=== PATIENT | female | born 1960 | race Caucasian/White ===

== ENCOUNTER 2022-05-23 05:41 | Emergency (ER) | payer BC, SELFPAY ==
[2022-05-23 05:49] VITALS: BP 188/91; PULSE 83; RESP 22; TEMP 36.2; O2SAT 96
--- NOTE | 2022-05-23 06:35 | CRLHL7_ITS ---
For Patients: As a result of the Century Cures Act, medical imaging exams and procedure reports are released immediately into your electronic medical record. You may view this report before your referring provider. If you have questions, please contact your health care provider. Indication: Shortness of breath. Technique: Chest 2 views. Comparison: June 25, 2021. Findings/Impression: Cardiovascular and mediastinum: Heart size and vasculature are normal in caliber and appearance. Lungs and pleural spaces: Ill-defined opacity in the right middle lobe could represent pneumonia. Remainder of the lungs and pleural spaces are clear. No pneumothorax. Bones and soft tissues: No significant findings. Dictated by Esdras Rowe MD @ 05/23/2022 7:48:08 AM (Electronically Signed)
--- NOTE | 2022-05-23 06:38 | ED_ITS ---
HPI - General Adult General Date Seen: 05/23/22 Chief complaint: Shortness of Breath/Dyspnea Stated complaint: Short of breath Time Seen by Provider: 05/23/22 06:23 Source: patient Mode of arrival: ambulatory Limitations: no limitations History of Present Illness HPI narrative: Patient is a 62-year-old female with history of coronary stent x2, congestive heart failure, type 2 diabetes, hypertension who presents with shortness of breath that began yesterday. This was much worse with exertion. She did have some orthopnea. No fevers or chills. She also has a history of pneumonia. She denies edema or weight gain. She denies chest pains or sputum production. Related Data Home Medications Medication Instructions Recorded Confirmed atorvastatin 80 mg tablet 80 mg PO DAILY 05/23/22 05/23/22 ezetimibe 10 mg tablet mg 05/23/22 insulin glargine-yfgn 100 unit/mL unit subcut 05/23/22 (3 mL) subcutaneous pen (Semglee (insulin glargine-yfgn) Pen) lisinopril 40 mg tablet 40 mg PO DAILY 05/23/22 05/23/22 metformin 500 mg tablet 500 mg PO BID 05/23/22 05/23/22 metoprolol tartrate 100 mg tablet 100 mg PO BID 05/23/22 05/23/22 nitroglycerin 0.4 mg sublingual 0.4 mg sublingual PRN 05/23/22 tablet omeprazole 20 mg capsule,delayed 20 mg PO .every other day 05/23/22 05/23/22 release semaglutide 1 mg/dose (4 mg/3 mL) mg subcut 05/23/22 subcutaneous pen injector (Ozempic) tramadol 50 mg tablet 50 mg PO PRN 05/23/22 Allergies Allergy/AdvReac Type Severity Reaction Status Date / Time morphine AdvReac increased Verified 05/23/22 06:04 BP Review of Systems Status of ROS: Reports: 10 or more systems reviewed and unremarkable except as noted in History and below [facility] Medical History (Updated 05/23/22 @ 06:23 by Dion Ayala MD) Chest pain CHF (congestive heart failure) HTN (hypertension) Pneumonia Type 2 diabetes mellitus Ulnar fracture Surgical History (Updated 05/23/22 @ 06:11 by Rachel De Guzman RN) Stented coronary artery Social History Smoking Status: Former smoker Second hand tobacco smoke exposure: No How often do you have a drink containing alcohol: never AUDIT-C Alcohol total score: 0 Non-prescribed substance use: denies use Exam Narrative: Exam Narrative: Vitals noted. HEENT: Conjunctiva clear. Tympanic membranes are pearly white bilaterally. Posterior pharynx is clear without erythema or exudate. Neck is supple without adenopathy, thyromegaly, carotid bruit. Lungs: Clear to auscultation in all andrea. No wheezes, rales, rhonchi. Heart: Regular rate and rhythm without murmur. Abdomen: Soft and nontender. No guarding, rigidity, rebound. Bowel sounds are normal. No palpable masses. Extremities: No cyanosis or edema. Good distal pulses. Skin: No abnormalities noted of the exposed skin. Neurologic: Awake, alert, fully oriented. Neurologic exam is nonfocal. Const: Vital Signs, click to edit/add: Vital Signs - 24 hr 05/23/22 05:49 Temperature 97.1 F L Pulse Rate [Right Pulse Oximeter] 83 Respiratory Rate 22 Blood Pressure [Ri ght Upper Arm] 188/91 H Pulse Oximetry 96 Oxygen Delivery Me thod Room Air Course Course Hospital Course: Patient seen and examined. Labs and a chest x-ray are ordered. She does not appear short of breath. She is not hypoxic. Reevaluation(s) Reevaluation #1: Her D-dimer has come back elevated and a CT of her chest is ordered to rule out pulmonary embolism. Patient's care will be assumed by Dr. Lares. Vital Signs Vital signs: Initial Vital Signs Temperature 97.1 F L 05/23/22 05:49 Temperature Source Temporal Artery Scan 05/23/22 05:49 Pulse Rate 83 05/23/22 05:49 Respiratory Rate 22 05/23/22 05:49 Blood Pressure 188/91 H 05/23/22 05:49 Blood Pressure Mean 123 05/23/22 05:49 Blood Pressure Position Supine 05/23/22 05:49 Pulse Oximetry 96 05/23/22 05:49 Oxygen Delivery Method 05/23/22 05:49 Vital Signs Temperature 97.1 F L 05/23/22 05:49 Pulse Rate 83 05/23/22 05:49 Respiratory Rate 22 05/23/22 05:49 Blood Pressure 188/91 H 05/23/22 05:49 Pulse Oximetry 96 05/23/22 05:49 Oxygen Delivery Method 05/23/22 05:49 Temperature 97.1 F L 05/23/22 05:49 Pulse Rate 83 05/23/22 05:49 Respiratory Rate 22 05/23/22 05:49 Blood Pressure 188/91 H 05/23/22 05:49 Pulse Oximetry 96 05/23/22 05:49 Oxygen Delivery Method 05/23/22 05:49 Medical Decision Making Lab Data Labs: Lab Results 05/23/22 05/23/22 05/23/22 Range/Units 06:48 06:48 06:48 WBC 10.16 (4.50-11.00) K/uL RBC 4.87 (4.00-5.20) m/uL Hgb 12.7 (12.0-16.0) gm/dL Hct 39.9 (33.0-51.0) % MCV 82 (80-100) fL MCH 26 (26-34) pg MCHC 32 (32-36) gm/dL RDW Coeff of Comfort 14.8 (11.5-15.5) % Plt Count 164 (140-440) K/uL Neut % (Auto) 64.2 (42.0-72.0) % Lymph % (Auto) 22.1 (20-44) % [place] % (Auto) 8.4 (0.0-11.0) % Eos % (Auto) 4.4 (0.0-7.0) % Baso % (Auto) 0.3 (0.0-3.0) % Neut # (Auto) 6.52 (1.7-7.0) K/uL Lymph # (Auto) 2.25 (0.90-2.90) K/uL [place] # (Auto) 0.90 (0.00-0.90) K/UL Eos # (Auto) 0.45 (0.00-0.50) K/uL Baso # (Auto) 0.03 (0.00-0.30) K/uL Abs Immat Gran (auto) 0.06 (0.00-0.30) K/uL D-Dimer Quant (PE/DVT) 0.83 H (0.00-0.50) ug/ml Sodium 144 (135-149) mmol/L Potassium 3.8 (3.6-5.1) mmol/L Chloride 110 (96-114) mmol/L Carbon Dioxide 25 (20-32) mmol/L BUN 17 (7-30) mg/dL Creatinine 1.1 (0.5-1.5) mg/dL Estimated GFR 58 ml/min Glucose 96 (60-115) mg/dL Calcium 8.8 (8.4-10.6) mg/dL NT-Pro-B Natriuret Pep 598 H (0-125) PG/mL Discharge Plan Discharge Prescriptions: No Action atorvastatin 80 mg tablet 80 mg PO DAILY lisinopril 40 mg tablet 40 mg PO DAILY metoprolol tartrate 100 mg tablet 100 mg PO BID omeprazole 20 mg capsule,delayed release(DR/EC) 20 mg PO .every other day tramadol 50 mg tablet 50 mg PO PRN metformin 500 mg tablet 500 mg PO BID ezetimibe 10 mg tablet Ozempic 1 mg/dose (4 mg/3 mL) pen injector SUBCUT insulin glargine-yfgn [Semglee(insulin glarg-yfgn)Pen] 100 unit/mL (3 mL) insulin pen SUBCUT nitroglycerin 0.4 mg tablet, sublingual 0.4 mg sublingual PRN Follow Up/Referrals: Nicki Vela DO [Primary Care Provider] -
[2022-05-23 07:06] LABS: Basophils Absolute Auto 0.03 K/uL (0.00-0.30); Basophils Percent Auto 0.3 % (0.0-3.0); Eosinophils Absolute Auto 0.45 K/uL (0.00-0.50); Eosinophils Percent Auto 4.4 % (0.0-7.0); Hematocrit 39.9 % (33.0-51.0); Hemoglobin* 12.7 gm/dL (12.0-16.0); Immature Granulocytes Abs Auto 0.06 K/uL (0.00-0.30); Lymphocytes Absolute Auto 2.25 K/uL (0.90-2.90); Lymphocytes Percent Auto 22.1 % (20-44); Mean Corpuscular HGB Conc 32 gm/dL (32-36); Mean Corpuscular Hemoglobin 26 pg (26-34); Mean Corpuscular Volume 82 fL (80-100); Monocytes Percent Auto 8.4 % (0.0-11.0); Neutrophils Absolute Auto 6.52 K/uL (1.7-7.0); Neutrophils Percent Auto 64.2 % (42.0-72.0); Platelet Count* 164 K/uL (140-440); RDW Coefficient of Variation % 14.8 % (11.5-15.5); Red Blood Count 4.87 m/uL (4.00-5.20); White Blood Count* 10.16 K/uL (4.50-11.00)
[2022-05-23 07:09] LABS: Slide Review Reflex No
[2022-05-23 07:24] LABS: Chloride* 110 mmol/L (96-114); Potassium* 3.8 mmol/L (3.6-5.1); Sodium* 144 mmol/L (135-149)
[2022-05-23 07:27] LABS: Blood Urea Nitrogen* 17 mg/dL (7-30); Carbon Dioxide* 25 mmol/L (20-32); Creatinine* 1.1 mg/dL (0.5-1.5); D Dimer Quantitative* 0.83 ug/ml (0.00-0.50); Estimated Glomerular Filt Rate 58 ml/min
[2022-05-23 07:28] LABS: Calcium* 8.8 mg/dL (8.4-10.6); Glucose* 96 mg/dL (60-115)
--- NOTE | 2022-05-23 07:36 | CRLHL7_ITS ---
For Patients: As a result of the Century Cures Act, medical imaging exams and procedure reports are released immediately into your electronic medical record. You may view this report before your referring provider. If you have questions, please contact your health care provider. INDICATION: Shortness of breath. TECHNIQUE: CT chest PE was acquired with 95 cc Isovue 370 IV contrast. COMPARISON: June 25, 2021. FINDINGS: Heart and vasculature: Contrast opacification of the pulmonary arterial tree is adequate. No sign of pulmonary embolism. Heart size is normal. Thoracic aorta and pulmonary artery are normal in caliber. Lungs and pleura: There is partial consolidation and volume loss in the right middle lobe. No other infiltrates. Scattered small subcentimeter nodules and calcified granulomas are stable and almost certainly benign. No pleural effusions, pleural thickening, or pneumothorax. Lymph nodes/mediastinum: No acute lymphadenopathy. Few small calcified lymph nodes present. Chest wall: No masses. Upper abdomen: No acute or significant findings. Bones: Unremarkable for age. IMPRESSION: 1. No pulmonary embolism. 2. Partial consolidation volume loss of the right middle lobe could represent atelectasis and/or pneumonia. No obvious cause for atelectasis. 3. Stable scattered subcentimeter calcified and noncalcified nodules which are very likely benign. Please note that all CT scans at this facility use dose modulation, iterative reconstruction, and/or weight-based dosing when appropriate to reduce radiation dose to as low as reasonably achievable. Dictated by Esdras Rowe MD @ 05/23/2022 10:21:56 AM (Electronically Signed)
[2022-05-23 07:37] LABS: NT Pro B Type NatriureticPept* 598 PG/mL (0-125)
[2022-05-23 07:40] LABS: Troponin I* 0.01 ng/mL (0.01-0.04)
[2022-05-23 07:58] VITALS: BP 165/76; RESP 18; O2SAT 98
--- NOTE | 2022-05-23 08:34 | ED.NURSE ---
#20 SL placed L FA. pt [employer] swab for covid
[2022-05-23] MEDS: FUROSEMIDE 10 MG/ML inj 40 MG IVP (08:58)
[2022-05-23 09:30] LABS: SARS PCR* Negative SARS-CoV-2 (Negative)
--- NOTE | 2022-05-23 10:27 | ED.GENADULT ---
HPI - General Adult General Chief complaint: Shortness of Breath/Dyspnea Stated complaint: Short of breath Time Seen by Provider: 05/23/22 06:23 Source: patient Mode of arrival: ambulatory Limitations: no limitations Related Data Home Medications Medication Instructions Recorded Confirmed atorvastatin 80 mg tablet 80 mg PO DAILY 05/23/22 05/23/22 ezetimibe 10 mg tablet mg 05/23/22 insulin glargine-yfgn 100 unit/mL unit subcut 05/23/22 (3 mL) subcutaneous pen (Semglee (insulin glargine-yfgn) Pen) lisinopril 40 mg tablet 40 mg PO DAILY 05/23/22 05/23/22 metformin 500 mg tablet 500 mg PO BID 05/23/22 05/23/22 metoprolol tartrate 100 mg tablet 100 mg PO BID 05/23/22 05/23/22 nitroglycerin 0.4 mg sublingual 0.4 mg sublingual PRN 05/23/22 tablet omeprazole 20 mg capsule,delayed 20 mg PO .every other day 05/23/22 05/23/22 release semaglutide 1 mg/dose (4 mg/3 mL) mg subcut 05/23/22 subcutaneous pen injector (Ozempic) tramadol 50 mg tablet 50 mg PO PRN 05/23/22 Previous Rx's Medication Instructions Recorded azithromycin 250 mg tablet 500 mg PO DAILY #6 tabs 05/23/22 (Zithromax Z-Jordan) Allergies Allergy/AdvReac Type Severity Reaction Status Date / Time morphine AdvReac increased Verified 05/23/22 06:04 BP PFSH [facility] Medical History (Updated 05/23/22 @ 06:23 by Dion Ayala MD) Chest pain CHF (congestive heart failure) HTN (hypertension) Pneumonia Type 2 diabetes mellitus Ulnar fracture Surgical History (Updated 05/23/22 @ 06:11 by Rachel De Guzman RN) Stented coronary artery Social History Smoking Status: Former smoker Second hand tobacco smoke exposure: No How often do you have a drink containing alcohol: never AUDIT-C Alcohol total score: 0 Non-prescribed substance use: denies use Exam Const: Vital Signs, click to edit/add: Vital Signs - 24 hr 05/23/22 05:49 05/23/22 07:58 Temperature 97.1 F L Pulse Rate [Right Pulse Oximeter] 83 Respiratory Rate 22 18 Blood Pressure [Ri ght Upper Arm] 188/91 H 165/76 H Pulse Oximetry 96 98 Oxygen Delivery Me thod Room Air Course Course Hospital Course: Patient seen and examined. Labs and a chest x-ray are ordered. She does not appear short of breath. She is not hypoxic. Vital Signs Vital signs: Initial Vital Signs Temperature 97.1 F L 05/23/22 05:49 Temperature Source Temporal Artery Scan 05/23/22 05:49 Pulse Rate 83 05/23/22 05:49 Respiratory Rate 22 05/23/22 05:49 Blood Pressure 188/91 H 05/23/22 05:49 Blood Pressure Mean 123 05/23/22 05:49 Blood Pressure Position Supine 05/23/22 05:49 Pulse Oximetry 96 05/23/22 05:49 Oxygen Delivery Method 05/23/22 05:49 Vital Signs Temperature 97.1 F L 05/23/22 05:49 Pulse Rate 83 05/23/22 05:49 Respiratory Rate 22 05/23/22 05:49 Blood Pressure 188/91 H 05/23/22 05:49 Pulse Oximetry 96 05/23/22 05:49 Oxygen Delivery Method 05/23/22 05:49 Temperature 97.1 F L 05/23/22 05:49 Pulse Rate 83 05/23/22 05:49 Respiratory Rate 18 05/23/22 07:58 Blood Pressure 165/76 H 05/23/22 07:58 Pulse Oximetry 98 05/23/22 07:58 Oxygen Delivery Method 05/23/22 05:49 Medical Decision Making MDM Narrative Medical decision making narrative: The patient was taken over by From Dr. Ayala, the CT scan of the chest shows questionable pneumonia in the right lung. Apparently Shahida is had this in the last few months as well I would recommend she talk to Dr. Fields about this and perhaps get a lung specialist referral. Will put her on Zithromax now, light activity, rest, update with Dr. Sims in the next 2-3 days. Lab Data Labs: Lab Results 05/23/22 05/23/22 05/23/22 Range/Units 06:48 06:48 06:48 WBC 10.16 (4.50-11.00) K/uL RBC 4.87 (4.00-5.20) m/uL Hgb 12.7 (12.0-16.0) gm/dL Hct 39.9 (33.0-51.0) % MCV 82 (80-100) fL MCH 26 (26-34) pg MCHC 32 (32-36) gm/dL RDW Coeff of Comfort 14.8 (11.5-15.5) % Plt Count 164 (140-440) K/uL Neut % (Auto) 64.2 (42.0-72.0) % Lymph % (Auto) 22.1 (20-44) % [place] % (Auto) 8.4 (0.0-11.0) % Eos % (Auto) 4.4 (0.0-7.0) % Baso % (Auto) 0.3 (0.0-3.0) % Neut # (Auto) 6.52 (1.7-7.0) K/uL Lymph # (Auto) 2.25 (0.90-2.90) K/uL [place] # (Auto) 0.90 (0.00-0.90) K/UL Eos # (Auto) 0.45 (0.00-0.50) K/uL Baso # (Auto) 0.03 (0.00-0.30) K/uL Abs Immat Gran (auto) 0.06 (0.00-0.30) K/uL D-Dimer Quant (PE/DVT) 0.83 H (0.00-0.50) ug/ml Sodium 144 (135-149) mmol/L Potassium 3.8 (3.6-5.1) mmol/L Chloride 110 (96-114) mmol/L Carbon Dioxide 25 (20-32) mmol/L BUN 17 (7-30) mg/dL Creatinine 1.1 (0.5-1.5) mg/dL Estimated GFR 58 ml/min Glucose 96 (60-115) mg/dL Calcium 8.8 (8.4-10.6) mg/dL Troponin I 0.01 (0.01-0.04) ng/mL NT-Pro-B Natriuret Pep 598 H (0-125) PG/mL SARS-CoV-2 (PCR) (Negative) 05/23/22 Range/Units 08:08 WBC (4.50-11.00) K/uL RBC (4.00-5.20) m/uL Hgb (12.0-16.0) gm/dL Hct (33.0-51.0) % MCV (80-100) fL MCH (26-34) pg MCHC (32-36) gm/dL RDW Coeff of Comfort (11.5-15.5) % Plt Count (140-440) K/uL Neut % (Auto) (42.0-72.0) % Lymph % (Auto) (20-44) % [place] % (Auto) (0.0-11.0) % Eos % (Auto) (0.0-7.0) % Baso % (Auto) (0.0-3.0) % Neut # (Auto) (1.7-7.0) K/uL Lymph # (Auto) (0.90-2.90) K/uL [place] # (Auto) (0.00-0.90) K/UL Eos # (Auto) (0.00-0.50) K/uL Baso # (Auto) (0.00-0.30) K/uL Abs Immat Gran (auto) (0.00-0.30) K/uL D-Dimer Quant (PE/DVT) (0.00-0.50) ug/ml Sodium (135-149) mmol/L Potassium (3.6-5.1) mmol/L Chloride (96-114) mmol/L Carbon Dioxide (20-32) mmol/L BUN (7-30) mg/dL Creatinine (0.5-1.5) mg/dL Estimated GFR ml/min Glucose (60-115) mg/dL Calcium (8.4-10.6) mg/dL Troponin I (0.01-0.04) ng/mL NT-Pro-B Natriuret Pep (0-125) PG/mL SARS-CoV-2 (PCR) Negative SARS-CoV-2 (Negative) Discharge Plan Discharge Prescriptions: New azithromycin [Zithromax Z-Jordan] 250 mg tablet 500 mg PO DAILY Qty: 6 0RF Taper: Z-JORDAN 500 mg Q24H for 1 Day and 0 Hour 250 mg Q24H for 4 Days and 0 Hour Rx Instructions: 500 mg orally; No Action atorvastatin 80 mg tablet 80 mg PO DAILY lisinopril 40 mg tablet 40 mg PO DAILY metoprolol tartrate 100 mg tablet 100 mg PO BID omeprazole 20 mg capsule,delayed release(DR/EC) 20 mg PO .every other day tramadol 50 mg tablet 50 mg PO PRN metformin 500 mg tablet 500 mg PO BID ezetimibe 10 mg tablet Ozempic 1 mg/dose (4 mg/3 mL) pen injector SUBCUT insulin glargine-yfgn [Semglee(insulin glarg-yfgn)Pen] 100 unit/mL (3 mL) insulin pen SUBCUT nitroglycerin 0.4 mg tablet, sublingual 0.4 mg sublingual PRN Follow Up/Referrals: Nicki Vela DO [Primary Care Provider] -
== END 2022-05-23 10:37 | disposition home or self-care (01) ==
PROVIDERS: Family Medicine; Emergency Provider Family Medicine; PCP Family Medicine
DX: J18.9 Pneumonia, unspecified organism (principal)
CPT/HCPCS: 36415; 71046; 71260; 80048; 83880; 84484; 85025; 85379; 87635; 96374; 99283; 99284; 99285; J1940; Q9967

== ENCOUNTER 2022-12-18 16:44 | Emergency (ER) | payer BC, SELFPAY ==
[2022-12-18 16:52] VITALS: BP 177/72; PULSE 63; RESP 18; TEMP 36.2; O2SAT 96; BMI 34.8
--- NOTE | 2022-12-18 17:28 | CRLHL7_ITS ---
For Patients: As a result of the Century Cures Act, medical imaging exams and procedure reports are released immediately into your electronic medical record. You may view this report before your referring provider. If you have questions, please contact your health care provider. 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 COMPARISON: None FINDINGS: Cardiovascular structures: Normal vascular enhancement of the pulmonary arteries, no sign of pulmonary embolism. Heart size is normal. Coronary artery calcifications and coronary artery stent. No sign of aneurysm in the thoracic aorta. Mediastinum and daniel: No mass or adenopathy. Lungs: Scattered subcentimeter calcified granulomata. There appears to have been a right middle lobectomy. There is some nodular thickening along the suture line and pleural fissures in the right lung. Pleura and pericardium: Small to moderate sized, partially loculated right pleural effusion. Chest wall and axilla: No mass or adenopathy. Upper abdomen: Unremarkable. Bones: No suspicious osseous lesions. IMPRESSION: No pulmonary embolism or pneumonia. Partially loculated small to moderate size right pleural effusion. New nodular thickening along the right middle lobectomy suture line and pleural fissures in the right lung. These findings are likely postoperative in nature. Coronary artery calcifications and coronary artery stent. Please note that all CT scans at this facility use dose modulation, iterative reconstruction, and/or weight-based dosing when appropriate to reduce radiation dose to as low as reasonably achievable. Dictated by Mary Skaggs MD @ 12/18/2022 7:38:05 PM (Electronically Signed)
--- NOTE | 2022-12-18 18:21 | ED.GENADULT ---
HPI - General Adult General Chief complaint: Shortness of Breath/Dyspnea Stated complaint: low O2, hx of lung removal Time Seen by Provider: 12/18/22 16:49 Source: patient and family Mode of arrival: ambulatory Limitations: no limitations History of Present Illness HPI narrative: Patient is a 62-year-old female with a history of broncholithiasis wonder went a right middle lobe lobectomy on 12/04/2022. Her postoperative course was unremarkable she was discharged home with oxygen to use at nighttime and as needed. She does not follow-up with her surgeon until late January. She has not seen her PCP since her discharge from the hospital. Today she called the clinic with concerns that with exertion her oxygen saturation would drop into the mid 80s and at rest it hovered between 88 and 92. It does come up when she applies her oxygen but she and her were concerned that this could represent infection. She has had no fevers or chills. She has a chronic cough that has been unchanged since leaving the hospital. She is eating and drinking well. No other concerns. Related Data Home Medications Medication Instructions Recorded Confirmed atorvastatin 80 mg tablet 80 mg PO DAILY 05/23/22 12/18/22 ezetimibe 10 mg tablet mg 05/23/22 insulin glargine-yfgn 100 unit/mL unit subcut 05/23/22 (3 mL) subcutaneous pen (Semglee (insulin glargine-yfgn) Pen) lisinopril 40 mg tablet 40 mg PO DAILY 05/23/22 12/18/22 metformin 500 mg tablet 500 mg PO BID 05/23/22 12/18/22 metoprolol tartrate 100 mg tablet 100 mg PO BID 05/23/22 12/18/22 nitroglycerin 0.4 mg sublingual 0.4 mg sublingual PRN 05/23/22 tablet omeprazole 20 mg capsule,delayed 20 mg PO .every other day 05/23/22 12/18/22 release semaglutide 1 mg/dose (4 mg/3 mL) mg subcut 05/23/22 subcutaneous pen injector (Ozempic) tramadol 50 mg tablet 50 mg PO PRN 05/23/22 aspirin 81 mg tablet,delayed 81 mg PO DAILY 12/18/22 12/18/22 release (Adult Low Dose Aspirin) Previous Rx's Medication Instructions Recorded azithromycin 250 mg tablet 500 mg PO DAILY #6 tabs 05/23/22 (Zithromax Z-Jordan) Allergies Allergy/AdvReac Type Severity Reaction Status Date / Time ticagrelor Allergy Unknown Verified 12/18/22 17:26 morphine AdvReac increased Verified 05/23/22 06:04 BP Review of Systems Narrative: Review of systems is positive for history of angina and coronary stenting x2. She has type 2 diabetes. She has a history of anemia. No GI or concerns. She still gets some drainage from her chest tube sites but there has been no purulent drainage or redness. She does have a follow-up appointment with her PCP tomorrow but was sent to the ER because of the hypoxia. Review of systems in all other areas is noted to be negative. [facility] Medical History (Updated 12/18/22 @ 19:51 by Dion Ayala MD) Broncholithiasis CHF (congestive heart failure) Chronic kidney disease (CKD) stage G3a/A3, moderately decreased glomerular filtration rate (GFR) between 45-59 mL/min/1.73 square meter and albuminuria creatinine ratio greater than 300 mg/g GERD (gastroesophageal reflux disease) HTN (hypertension) Hyperlipidemia Iron deficiency anemia Morbid obesity NSTEMI (non-ST elevated myocardial infarction) Pneumonia Type 2 diabetes mellitus Ulnar fracture Surgical History (Updated 12/18/22 @ 18:27 by Dion Ayala MD) H/O wrist surgery History of carpal tunnel release History of coronary artery stent placement S/P lobectomy of lung Social History Smoking Status: Former smoker Second hand tobacco smoke exposure: No How often do you have a drink containing alcohol: never AUDIT-C Alcohol total score: 0 Non-prescribed substance use: denies use Exam Narrative: Exam Narrative: Vitals noted. HEENT: Conjunctiva clear. Tympanic membranes are pearly white bilaterally. Posterior pharynx is clear without erythema or exudate. Neck is supple without adenopathy, thyromegaly, carotid bruit. Lungs: Clear to auscultation on the left. Breath sounds are mildly diminished at the right base. No wheezes or rales. For thoracotomy wound is well healed with no redness or drainage. The two right upper quadrant drain sites look okay with only trace yellow serous drainage. Heart: Regular rate and rhythm without murmur. Abdomen: Soft and nontender. No guarding, rigidity, rebound. Bowel sounds are normal. No palpable masses. Extremities: No cyanosis or edema. Good distal pulses. Skin: No abnormalities noted of the exposed skin. Neurologic: Awake, alert, fully oriented. Neurologic exam is nonfocal. Const: Vital Signs, click to edit/add: Vital Signs - 24 hr 12/18/22 16:52 Temperature 97.2 F L Pulse Rate [Pulse Oximeter] 63 Respiratory Rate 18 Blood Pressure [Ri ght Upper Arm] 177/72 H Pulse Oximetry 96 Oxygen Delivery Me thod Room Air Course Course Hospital Course: Patient was seen and examined. She is hypertensive but not hypoxic here. She does not appear short of breath. CBC and BMP are drawn. CT of her chest is ordered. Reevaluation(s) Reevaluation #1: [place] [address]. Basic metabolic panel is normal other than a glucose of 206. CT scan of her chest shows: INDICATION: Shortness of breath, history of right middle lobectomy for broncho left 3 weeks ago TECHNIQUE: CT chest pulmonary PE protocol acquired with 95 cc Isovue 370 IV contrast. COMPARISON: None FINDINGS: Cardiovascular structures: Normal vascular enhancement of the pulmonary arteries, no sign of pulmonary embolism.? Heart size is normal. Coronary artery calcifications and coronary artery stent. No sign of aneurysm in the thoracic aorta.? Mediastinum and daniel: No mass or adenopathy.? Lungs: Scattered subcentimeter calcified granulomata. There appears to have been a right middle lobectomy. There is some nodular thickening along the suture line and pleural fissures in the right lung. Pleura and pericardium: Small to moderate sized, partially loculated right pleural effusion. Chest wall and axilla: No mass or adenopathy.? Upper abdomen: Unremarkable.? Bones: No suspicious osseous lesions. IMPRESSION: No pulmonary embolism or pneumonia. ? Partially loculated small to moderate size right pleural effusion. New nodular thickening along the right middle lobectomy suture line and pleural fissures in the right lung. These findings are likely postoperative in nature. Coronary artery calcifications and coronary artery stent. Vital Signs Vital signs: Initial Vital Signs Temperature 97.2 F L 12/18/22 16:52 Temperature Source Temporal Artery Scan 12/18/22 16:52 Pulse Rate 63 12/18/22 16:52 Respiratory Rate 18 12/18/22 16:52 Blood Pressure 177/72 H 12/18/22 16:52 Blood Pressure Mean 107 12/18/22 16:52 Blood Pressure Position Supine 12/18/22 16:52 Pulse Oximetry 96 12/18/22 16:52 Oxygen Delivery Method 12/18/22 16:52 Vital Signs Temperature 97.2 F L 12/18/22 16:52 Pulse Rate 63 12/18/22 16:52 Respiratory Rate 18 12/18/22 16:52 Blood Pressure 177/72 H 12/18/22 16:52 Pulse Oximetry 96 12/18/22 16:52 Oxygen Delivery Method 12/18/22 16:52 Temperature 97.2 F L 12/18/22 16:52 Pulse Rate 63 12/18/22 16:52 Respiratory Rate 18 12/18/22 16:52 Blood Pressure 177/72 H 12/18/22 16:52 Pulse Oximetry 96 12/18/22 16:52 Oxygen Delivery Method 12/18/22 16:52 Medical Decision Making MDM Narrative Medical decision making narrative: Patient has a small pleural effusion and postoperative findings in the chest but no acute findings of infection or pulmonary embolism. I have suggested that she keep her appointment with her PCP tomorrow. The CT images can be pushed to [place] so her surgeon can review them as well. I deferred the decision for a diuretic to Dr. Vela. Lab Data Labs: Lab Results 12/18/22 12/18/22 12/18/22 Range/Units 18:10 18:10 18:15 WBC 15.83 H (4.50-11.00) K/uL RBC 4.93 (4.00-5.20) m/uL Hgb 13.1 (12.0-16.0) gm/dL Hct 40.6 (33.0-51.0) % MCV 82 (80-100) fL MCH 27 (26-34) pg MCHC 32 (32-36) gm/dL RDW Coeff of Comfort 14.9 (11.5-15.5) % Plt Count 219 (140-440) K/uL Neut % (Auto) 76.8 H (42.0-72.0) % Lymph % (Auto) 14.2 L (20-44) % [place] % (Auto) 6.2 (0.0-11.0) % Eos % (Auto) 2.1 (0.0-7.0) % Baso % (Auto) 0.3 (0.0-3.0) % Neut # (Auto) 12.20 H (1.7-7.0) K/uL Lymph # (Auto) 2.20 (0.90-2.90) K/uL [place] # (Auto) 1.00 H (0.00-0.90) K/UL Eos # (Auto) 0.30 (0.00-0.50) K/uL Baso # (Auto) 0.00 (0.00-0.30) K/uL Sodium 135 (135-149) mmol/L Potassium 4.1 (3.6-5.1) mmol/L Chloride 100 (96-114) mmol/L Carbon Dioxide 29 (20-32) mmol/L BUN 22 (7-30) mg/dL Creatinine 1.0 (0.5-1.5) mg/dL Estimated Creat Clear 51.66 Estimated GFR 64 ml/min Glucose 206 H (60-115) mg/dL Calcium 8.9 (8.4-10.6) mg/dL POC Creatinine 1.2 (0.6-1.3) mg/dl Discharge Plan Discharge Clinical Impression: Dyspnea, Pleural effusion Patient Disposition: Home, Self-Care Condition: Stable Instructions: Pleural Effusion (ED) Additional Instructions: Continue current meds. Follow-up with Dr. Vela tomorrow as scheduled. Use home oxygen to keep your sats above 90%. Your CT images can be pushed to [place] for your surgeon to review tomorrow. Return to the emergency department for worsening shortness of breath. Prescriptions: No Action atorvastatin 80 mg tablet 80 mg PO DAILY lisinopril 40 mg tablet 40 mg PO DAILY metoprolol tartrate 100 mg tablet 100 mg PO BID omeprazole 20 mg capsule,delayed release(DR/EC) 20 mg PO .every other day tramadol 50 mg tablet 50 mg PO PRN metformin 500 mg tablet 500 mg PO BID ezetimibe 10 mg tablet Ozempic 1 mg/dose (4 mg/3 mL) pen injector SUBCUT insulin glargine-yfgn [Semglee(insulin glarg-yfgn)Pen] 100 unit/mL (3 mL) insulin pen SUBCUT nitroglycerin 0.4 mg tablet, sublingual 0.4 mg sublingual PRN azithromycin [Zithromax Z-Jordan] 250 mg tablet 500 mg PO DAILY Qty: 6 0RF Taper: Z-JORDAN 500 mg Q24H for 1 Day and 0 Hour 250 mg Q24H for 4 Days and 0 Hour Rx Instructions: 500 mg orally; aspirin [Adult Low Dose Aspirin] 81 mg tablet,delayed release (DR/EC) 81 mg PO DAILY Follow Up/Referrals: Nicki Vela DO [Primary Care Provider] - Stand Alone Forms: [employer] Info Instructions
[2022-12-18 18:22] LABS: Creatinine, Point-of-Care* 1.2 mg/dl (0.6-1.3)
[2022-12-18 18:22] LABS: Basophils Percent Auto 0.3 % (0.0-3.0); Eosinophils Percent Auto 2.1 % (0.0-7.0); Hematocrit 40.6 % (33.0-51.0); Hemoglobin* 13.1 gm/dL (12.0-16.0); Immature Granulocytes Pct Auto 0.4 %; Lymphocytes Percent Auto 14.2 % (20-44); Mean Corpuscular HGB Conc 32 gm/dL (32-36); Mean Corpuscular Hemoglobin 27 pg (26-34); Mean Corpuscular Volume 82 fL (80-100); Monocytes Percent Auto 6.2 % (0.0-11.0); Neutrophils Percent Auto 76.8 % (42.0-72.0); Platelet Count* 219 K/uL (140-440); RDW Coefficient of Variation % 14.9 % (11.5-15.5); Red Blood Count 4.93 m/uL (4.00-5.20); White Blood Count* 15.83 K/uL (4.50-11.00)
[2022-12-18 18:26] LABS: Slide Review Reflex No
[2022-12-18 18:40] LABS: Chloride* 100 mmol/L (96-114); Potassium* 4.1 mmol/L (3.6-5.1); Sodium* 135 mmol/L (135-149)
[2022-12-18 18:42] LABS: Est. Creatinine Clearance* 51.66; Estimated Glomerular Filt Rate 64 ml/min
[2022-12-18 18:43] LABS: Blood Urea Nitrogen* 22 mg/dL (7-30); Calcium* 8.9 mg/dL (8.4-10.6); Carbon Dioxide* 29 mmol/L (20-32); Glucose* 206 mg/dL (60-115)
== END 2022-12-18 20:00 | disposition home or self-care (01) ==
PROVIDERS: Emergency Provider Family Medicine; PCP Family Medicine
DX: R06.00 Dyspnea, unspecified (principal); J90 Pleural effusion, not elsewhere classified
CPT/HCPCS: 36415; 71260; 80048; 82565; 85025; 99283; 99284; Q9967

== ENCOUNTER 2025-01-08 09:40 | Emergency (ER) | payer BC, SELFPAY ==
--- OUTSIDE RECORDS SUMMARY | 2025-01-08 09:43 | XMS_ITS ---
Author Name Interface, [id number] lity Address [address] [address] Organization [facility] Address [address] [address] Care Team Providers Care Tile Burner Name Role Phone Kirill Hurtado Unavailable Allergies and Adverse Reactions Medication/Group Name Reaction Severity Date morphine 07/30/2022 Brilinta 07/30/2022 Plan Date Type Value 08/14/2022 APPOINTMENT SURGERY 2 HR 08/09/2022 APPOINTMENT SURGERY 3 HR 07/30/2022 APPOINTMENT NEW PT CONSULT 3 0 MIN 07/31/2022 [facility] Chest x-ray, PA and lateral Reason for Visit SURGERY 2 HR Encounters Date Name 07/30/2022 Broncholith Immunizations Date Name Route Dose Instructions Refusal Reason Stat us Covid-19 vaccine (Pfizer) Completed Covid-19 vaccine (Pfizer) Completed Covid-19 vaccine (Pfizer) Completed Covid-19 vaccine (Pfizer) Completed Diagnostic Results Date Type Test Units Lower Limit Upper Limit Result Flag Comments Status Ordered By Specimen Source [place] [facility] [place] See wood heel attacher d Medications Date Name Route Dose Frequency Instructions Start Date End Date Status Metoprolol Oral (Tartrate) 1.0 tablet BID active Clopidogrel Oral daily active Furosemide Oral daily a ctive Cholecalciferol Oral active Lisinopril Oral a ctive Zinc Oral 50.0 mg daily active Tramadol Oral Q6H PRN ac tive Insulin Glargine Subcutaneous 100 unit/mL active Atorvastatin Oral daily active Semaglutide Subcutaneous Pen Injector weekly active Ezetimibe Oral daily ac tive Nitroglycerin Sublingual PRN active Metformin Oral 1.0 tablet BID active Multivitamins Oral Tablet active Omeprazole Oral Delayed Release Capsule daily active Aspirin Oral daily acti ve Problems Diagnosis Status Date of Diagnosi s Broncholith Active Vital Signs Date Type Value 07/30/2022 Body Temperature 98.00 07/30/2022 Heart Beat 78.00 07/30/2022 Respiratory Rate 16.00 07/30/2022 Oxygen Saturation 97.00 07/30/2022 BSA 1.99 07/30/2022 Pain Scale 0.00 07/30/2022 Weight 208.60 07/30/2022 Height 64.00 07/30/2022 BMI 35.81 07/30/2022 Intravascular Systolic 138 07/30/2022 Intravascular Diastolic 80
--- OUTSIDE RECORDS SUMMARY | 2025-01-08 09:43 | XMS_ITS | CCD ---
Author Name Interface, [id number] lity Address [address] [place] [address] [facility] Address [address] [place] [address] Care Team Providers Care Warehouse Team Member Name Role Phone Kirill Hurtado Unavailable Unavailable Care Plan Reason for Visit Encounters Medications Problems Social History
--- OUTSIDE RECORDS SUMMARY | 2025-01-08 09:43 | XMS_ITS ---
Author Organization [facility] Address [address] [place] [id number] Care Team Providers Care Staffing Branch Manager Name Role Phone Unavailable Unavailable Unavailable Allergies, Adverse Reactions, Alerts This patient has no known allergies or adverse reactions. Problems This patient has no known problems.
--- OUTSIDE RECORDS SUMMARY | 2025-01-08 09:43 | XMS_ITS | Clinical Summary ---
Author Organization [employer] [facility] Address [address] [place] [id number] Care Team Providers Care Title Supervisor Name Role Phone Nicki Vela DO Primary Care Provider [phone] Kale Ga MD Unavailable Allergies Active Allergy Reactions Criticality Noted Date Comments Ticagrelor Other - Describe In Comment Field Low 10/24/2021 Pt had SOB and anxiety/word finding difficulty, non-allergic side effect Homeopathic Products 08/05/2007 only happens in the fall Morphine Sleep Disturbances 08/08/2015 Pollen Extracts *Unknown 09/04/2022 Medications multivitamin (MVI) tablet Take 1 tablet. by mouth. Every other day 0 019 Active aspirin (ECOTRIN) 81 mg enteric coated tablet Take 1 tablet by mouth once daily with a meal. 0 019 Active acetaminophen (TYLENOL EXTRA STRGTH) 500 mg tablet Take 1,000 mg by mouth. 023 Active cyanocobalamin (VITAMIN B12) 50 mcg tablet Take 50 mcg by mouth. Active continuous glucose monitor SENSOR KIT (FREESYLE PRANAY)Indications :Insulin dependent type 2 diabetes mellitus (HC) To be used to read blood sugars per surgical physician assistant's directions. 1 Each 023 Active nitroglycerin (Nitrostat) 0.4 mg sublingual tabletIndications :ASHD (arteriosclerotic heart disease),NSTEMI (non-ST elevated myocardial infarction) (HC) Place 1 Tablet (0.4 mg) under the tongue every 5 minutes if needed for Chest Pain. 25 Tablet 1 023 Active atorvastatin (LIPITOR) 80 mg tabletIndications :Lipid disorder Take 1 Tablet (80 mg) by mouth once daily. 90 Tablet 2 024 Active NIFEdipine (PROCARDIA XL) 30 mg extended-release tabletIndications :Hypertension, unspecified type TAKE ONE TABLET BY MOUTH EVERY DAY BEFORE A MEAL (OVERDUE FOR APPT) 90 Tablet 2 024 Active traMADoL (ULTRAM) 50 mg tabletIndications :Chronic pain of both shoulders TAKE ONE TABLET BY MOUTH EVERY 6 HOURS NEEDED FOR Chronic PAIN 40 Tablet 024 Active omeprazole (PRILOSEC) 20 mg Delayed-Release capsuleIndication s:Gastroesophagea l reflux disease without esophagitis TAKE ONE CAPSULE BY MOUTH ONCE DAILY BEFORE A MEAL 90 Capsule 3 024 Active Additional Information Patient taking differently:20 mg Oral,(No frequency reported), Every other day, Reported on 12/28/2024 insulin glargine, U-100, (Semglee Pen U-100 Insulin) 100 unit/mL (3 mL) penIndications:Ty pe 2 diabetes mellitus with hyperglycemia, with long-term current use of insulin (HC) Product desired: SEMGLEE INJECT 98 UNITS UNDER THE SKIN AT 8 IN THE MORNING AND 98 units at 8 IN THE EVENING DIRECTED. 90 day supply 200 mL 3 024 Active pen needle (UltiCare Pen Needle) 32 gauge x 5/32 (disposable insulin pen needle)Indication s:Type 2 diabetes mellitus with hyperglycemia, with long-term current use of insulin (HC) USE TO ADMINISTER INSULIN DIRECTED 300 Each 3 024 Active metoprolol tartrate (LOPRESSOR) 100 mg tabletIndications :HTN (hypertension) Take 2 Tablets (200 mg) by mouth two times daily. 180 Tablet 3 024 Active semaglutide (Ozempic) 2 mg/dose (8 mg/3 mL) subcutaneous penIndications:Di abetes mellitus due to underlying condition, uncontrolled, with hyperglycemia (HC) Inject 2 mg subcutaneous once weekly. 9 mL 024 Active metFORMIN (GLUCOPHAGE) 500 mg tabletIndications :Type 2 diabetes mellitus with hyperglycemia, with long-term current use of insulin (HC) TAKE ONE TABLET BY MOUTH TWICE A DAY WITH MEALS . 180 Tablet 025 Active ezetimibe (Zetia) 10 mg tabletIndications :Hyperlipidemia, unspecified hyperlipidemia type Take 1 Tablet (10 mg) by mouth once daily. 90 Tablet 3 025 Active losartan 100 mg tabletIndications :HTN (hypertension) TAKE ONE TABLET BY MOUTH ONCE EVERY DAY 90 Tablet 1 025 Active cholecalciferol (VITAMIN D3) 2,000 unit capsule Take 1 capsule by mouth once daily. 020 2024 Discontinued(* Med complete/Regim en complete/Level of care change) losartan (COZAAR) 100 mg tabletIndications :HTN (hypertension) TAKE ONE TABLET BY MOUTH ONCE EVERY DAY 90 Tablet 024 2024 Discontinued Active Problems Problem Noted Date Diagnosed Date Diabetic nephropathy associa yelena with diabetes mellitus due to underlying condition 02/11/2023 Chronic bronchitis, unspecified chronic bronchit is type 12/26/2022 Recurrent pneumonia 08/17/2022 Overview (08/17/2022): Related to obstructing broncholith. Has had 2 bronchs. Nonmalignant. Initial plan was lobectomy but vessel nearby so decided not pursue. Type 2 diabetes mellitus wit h hyperglycemia, with long-term current use of insulin 12/04/2021 Dyspnea & Angina 10/20/2021 ASCUS of cervix with negative high risk HPV 07/15 Overview (08/22/2020): 08/08/2020 ASCUS/HPV negative Plan: Pap/HPV due 07/2023 S/P coronary artery stent placement 12/01/2015 Pulmonary nodule, left 08/08/2015 Overview (06/02/2016): 07/2015: 3mm left lower lobe pulmonary nodule, recommended repeat CT in [address] 05/2016 no left lung nodule noted Hydroxyapatite deposition disease of shoulder ASHD (arteriosclerotic heart disease) 10/11/2014 Overview (10/23/2021): - 10/11/14: s/p BMS pOM2 - 10/11/21 Myocardial Perfusion Scan: Medium-sized area of moderate reversibility identified in the anterior wall from the base to apex consistent with an area of ischemia. - angiogram 10/23/21: s/p MARY mLAD History of non-ST elevation myocardial infarctio n (NSTEMI) 10/11/2014 Adenomatous colon polyp 06/11/2014 Overview (05/29/2019): Colonoscopy 05/2014 polyp repeat in 5 years Colonoscopy 05/2019 four polyps, repeat in 3 years Pulmonary nodule, right 04/07/2014 Overview (08/08/2015): [address] scan 03/2014. Recommend repeat CT scan in September (6-12mo from original CT) and then again at 18-24 months from original if unchanged. 09/17/2014: 5mm nodule decreased in size. New 2.6mm nodule. Plan recheck CT 12 months and if stable, no further imaging needed 03/2015: 2 right nodules stable, no further imaging needed Diastolic heart failure 04/01/2014 Iron deficiency anemia 04/01/2014 Overview (04/01/2014): Intermittently in past. Previously thought d/t heavy menses. LMP in September 2013 and iron def anemia noted 03/27 in hospital. Eats red meat. Recommend colonoscopy, last done in 2006 and repeat recommended in 5yrs d/t family history and doesn't appear to have been done. GERD (gastroesophageal reflux disease) 4 Overview (05/14/2014): EGD 04/2014 normal CKD (chronic kidney disease) stage 3, GFR 30-59 ml/min 2014 Lipid disorder 02/20/2013 HTN (hypertension) 12/14/2009 Diabetes mellitus, type 2 Broncholithiasis Overview (09/03/2022): Per pulmonology Going forward we will just have to have a low threshold for antibiotics therapy. Alternating augmentin, levaquin, doxycycline. Resolved Problems Problem Noted Date Diagnosed Date Resolved Date Chest pain 10/10/2014 03/10/2016 Elevated lipase 10/10/2014 03/10/2016 Acute pancreatitis 10/10/2014 6 Encounters Date Type Department Care Team Description 12/31/2024 Refill [facility] [address] [place] [address] Nicki Vela DO Refill Request (Losartan) 12/28/2024 9:15 AM CDT Office Visit [facility] [address] [place] [address] Kale Ga MD Follow Up (Stage 3b chronic kidney disease (HC)) 12/28/2024 Travel 12/23/[address] [facility] [address] [place], [place] [id number] Case Fulton MD Results (Labs) 12/22/2024 3:45 PM CDT Orders Only [facility] [address] [place] [address] Lab, [place] Lab 12/22/2024 3:00 PM CDT Office Visit [facility] [place] [facility] [address] [place] [address] Case Fulton MD Follow Up (Follow up coronary artery disease ) 12/22/2024 Travel 11/27/2024 9:00 AM POWER BENDER OPERATOR Ancillary Procedure [facility] [address] [address] 11/27/2024 Travel 11/03/2024 Telephone [facility] [address] [place] [address] Kale Ga MD Results; Follow Up (Nephrology Post Visit (11/02/2024) RN Follow-up Call /) 11/02/2024 9:15 AM POWER BENDER OPERATOR Office Visit [facility] [id number] [place] [address] Kale Ga MD Consult (Stage 3b chronic kidney disease; Diabetes mellitus due to underlying condition with stage 3b chronic kidney disease, with long-term current use of insulin) 11/02/2024 Travel 10/30/2024 Refill [facility] [address] [place] [address] Nicki Vela DO Refill Request (Metformin) 10/22/2024 Telephone [facility] [address] [place] [address] Nicki Vela DO Questions (referral questions. ) from Last 3 Months Immunizations Immunization Administration Dates Next Due AMB Influenza, IIV3 (Age >=3 years)(Flu Clinic Only) 07/22/2012,09/01/2008 COVID-19 vaccine (Pfizer-Bio NTech 30mcg/0.3mL) 12YO+ FITO-SUCROSE PF, MDV 02/19/2022 COVID-19 vaccine (Pfizer-Bio NTech 30mcg/0.3mL) PF, MDV 12/17/2020,11/26/2020 HepA-HepB (Twinrix) 02/20/2013,05/14/2007,2003 INFLUENZA, IIV3 PF (AGE >= 6 MO) 09/07/2024 Influenza A (H1N1), Inactivated 08/31/2009 Influenza A (H1N1), Inactiva yelena (Age >=3 Years) 08/31/2009 Influenza Virus, Unspecified 09/02/2017 Influenza, IIV3 (Age >=3 years) 10/16/19 14,07/22/2012,09/01/2008,09/03,08/20/2005 Influenza, IIV4 07/29/2023, 2,10/12/2021,07/20,07/16/2018,08/14/2016,07/24/2015 Influenza,CCIIV4 PRESERV FREE 08/11/2019 Pneumococcal Conj 20-valent (Prevnar 20) 05/20/2023 Pneumococcal Poly,23-Valent (Pneumovax) 03/25/2014 RSV, Recombinant ADJ Reconst ituted (Arexvy 120MCG/0.5mL) 09/07/2024 Td (Age >=7 Years) 08/06/2018,08/05/1996 Tdap 05/14/2007 Family History Medical History Relation Name Comments Cancer Father lung Cancer Mother bladder Cancer-breast Mother Cancer-colon Mother Premature CHD (under age 60) Neg. none Diabetes Paternal Aunt Heart failure Paternal Grandfather Cancer-ovarian No Family History Relation Name Status Comments Father Mother Neg. Paternal Aunt Paternal Grandfather Social History Tobacco Use Types Packs/Day Years Used Date Smoking Tobacco: Former Cigarettes 1 15 0 02/11/1986 - 02/11/2001 Smokeless Tobacco: Never Tobacco Cessation:Counseling Given: Yes Alcohol Use Standard Drinks/Week Comments No 0 (1 standard drink = 0.6 oz pur e alcohol) PHQ-2 Answer Date Recorded PHQ-2 TOTAL SCORE 1 09/23/2023 Social Connections Answer Date Recorded Do you often feel lonely or isolated from those around you? 0 09/07/2024 Financial Resource Strain Answer Date R ecorded Difficulty of Paying Living Expenses 3 09/07/2024 Difficulty of Paying Living Expenses Not on file 09/07/2024 Food Insecurity Answer Date Recorded Do you worry your food will run out before you are able to buy more? 1 09/07/2024 Transportation Needs Answer Date Record ed Does lack of transportation keep you from medica l appointments? 1 09/07/2024 Does lack of transportation keep you from work, meetings or getting things that you need? 1 09/07/2024 Housing Stability Answer Date Recorded What is your housing situation today? 1 09/07/2024 Utilities Answer Date Recorded Do you have trouble paying f or utilities (for example, heat, electricity, water, phone)? 1 09/07/2024 Comments No Sex and Gender Information Value Date Recorded Sex Assigned at Not on file Legal Sex Female 5:26 AM POWER BENDER OPERATOR Gender Identity Not on file Sexual Orientation Not on file Obstetrics History Para Term AB IAB SAB Ectopic Multiple Livin g Live Births 5 4 4 Date Outcome GA Total Labor Labor/2nd/3rd Weight Sex Type Anes PTL Jennifer A1 A5 Name Clin Term Term Term Term Last Filed Vital Signs Vital Sign Reading Time Taken Comments Blood Pressure 138/76 12/28/2024 9:20 AM CDT Pulse 79 12/28/2024 9:20 AM CDT Temperature 36.8 C (98.3 F) 07/08/2023 12:46 PM CDT Respiratory Rate 18 08/14/2022 11:48 AM CDT Oxygen Saturation 97% 12/22/2024 2:55 PM CDT Inhaled Oxygen Concentration - - Weight 94.3 kg (208 lb) 12/28/2024 9:20 AM CDT Height 162.6 cm (5' 4) 06/02/2024 3:46 PM CDT Body Mass Index 35.7 06/02/2024 3:46 PM CDT Plan of Treatment Upcoming Encounters Date Type Department Care Team (Late st Contact Info) Description 06/28/2025 3:45 PM CDT Orders Only [facility] [address] [place] [address] [place], [place] 07/02/2025 9:00 AM CDT Office Visit [facility] [address] [place], [place] [phone] Norma Richardson, TRINH [address] [place] [address] Health Maintenance Due Date Last Done Comments HIV for age 15-65 1977 Zoster (shingles) series for age 50+ (1 of 2) 02/18/2012 Colonoscopy through age 75 05/28/202205/28, 05/28/2019, 06/10/2014, Additional history exists Pap test for age 21-65 08/08/2023 , 08/08/2020, 04/28/2015, Additional history exists COVID-19 vaccine series ( season) 2024 02/19/2022, 07/26/2021, 12/17/2020, Additional history exists Depression screening for age 12+ 09/23/2024 09/23/2023, 08/08/2020, 09/28/2019, Additional history exists BMI (ht and wt on same day) for age 18+ 06/02/2025 06/02/2024, 08/06/2022, 07/06/2022, Additional history exists Mammogram for age 45-75 09/28/2025 09/28/20, 02/19/2023, 07/13/2020, Additional history exists Tetanus booster 08/06/2028 08/06/2018, 10/2006, 08/05/1996 Lipids for age 45-75 12/22/2029 12/22/2024, 06/02/2024, 05/20/2023, Additional history exists Tdap Completed 05/14/2007 Hepatitis C screening for ag e 18-79 Completed 11/21/2020 Pneumococcal series for age 50+ Completed , 03/25/2014 Influenza Vaccine Completed 09/07/2024, , 08/16/2022, Additional history exists RSV vaccine for adults or Completed 09/07/2024 Procedures Procedure Name Priority Date/Time Associated Diagnosis Comments BASIC METABOLIC PANEL Routine 12/22/2024 3:19 PM CDT Stage 3b chronic kidney disease (HC) LIPID PANEL W REFLEX MEASURED LDL Routine 12/22/2024 3:15 PM CDT Hyperlipidemia, unspecified hyperlipidemia type US RENAL AND BLADDER COMPLETE Routine 11/27/2024 9:36 AM POWER BENDER OPERATOR Stage 3b chronic kidney disease (HC) URINALYSIS MICROSCOPIC Routine 11/02/2024 2:15 PM POWER BENDER OPERATOR Stage 3b chronic kidney disease (HC) URINE CULTURE Routine 11/02/2024 2:15 PM POWER BENDER OPERATOR Stage 3b chronic kidney disease (HC) URINALYSIS MACROSCOPIC - [facility] ONLY POC DIP ([facility]) Routine 11/02/2024 2:15 PM POWER BENDER OPERATOR Stage 3b chronic kidney disease (HC) PROTEIN/CREAT RATIO,URINE Routine 11/02/2024 2:15 PM POWER BENDER OPERATOR Stage 3b chronic kidney disease (HC) URINE ALBUMIN TO CREATININE RATIO, RANDOM Routine 11/02/2024 2:15 PM POWER BENDER OPERATOR Stage 3b chronic kidney disease (HC) CBC WITH AUTO DIFFERENTIAL Routine 11/02/2024 10:07 AM POWER BENDER OPERATOR Stage 3b chronic kidney disease (HC) HEPATIC FUNCTION PANEL Routine 11/02/2024 10:07 AM POWER BENDER OPERATOR Stage 3b chronic kidney disease (HC) VITAMIN D 25 (DEFICIENCY) Routine 11/02/2024 10:07 AM POWER BENDER OPERATOR Stage 3b chronic kidney disease (HC) PHOSPHORUS Routine 11/02/2024 10:07 AM POWER BENDER OPERATOR Stage 3b chronic kidney disease (HC) PTH,INTACT Routine 11/02/2024 10:07 AM POWER BENDER OPERATOR Stage 3b chronic kidney disease (HC) BASIC METABOLIC PANEL Routine 11/02/2024 10:07 AM POWER BENDER OPERATOR Stage 3b chronic kidney disease (HC) CBC WITH AUTO DIFFERENTIAL Routine 11/02/2024 10:07 AM POWER BENDER OPERATOR Stage 3b chronic kidney disease (HC) XR MAMMO BANDAR BILAT SCREEN Routine 09/28/2024 4:07 PM POWER BENDER OPERATOR Visit for screening mammogram ANTI HCV Routine 11/21/2020 3:43 PM POWER BENDER OPERATOR Need for hepatitis C screening test ASSET PROTECTION OFFICER THIN PREP PAP SCREEN IMAGED Routine 08/08/2020 9:03 AM CDT Screening for malignant neoplasm of cervix COLONOSCOPY 05/28/2019 11:30 AM CDT from Last 3 Months or Most Recently Relevant to Health Maintenance Results * (ABNORMAL) BASIC METABOLIC PANEL (12/22/2024 3:19 PM CDT) Only the most recent of2 resultswithin the time period is included. GLUCOSE 111(H) 65 - 99 mg/dL [employer] Comment: Fasting reference interval For someone without known diabetes, a glucose value between 100 and 125 mg/dL is consistent with prediabetes and should be confirmed with a follow-up test. UREA NITROGEN (BUN) 23 7 - 25 mg/dL [facility] CREATININE 1.19(H) 0.50 - 1.05 mg/dL [facility] EGFR 52(L) > OR = 60 mL/min/1.7 3m2 [facility] BUN/CREATININE RATIO 19 6 - 22 (calc) [facility] SODIUM 141 135 - 146 mmol/L [facility] POTASSIUM 4.1 3.5 - 5.3 mmol/L [facility] CHLORIDE 105 98 - 110 mmol/L [facility] CARBON DIOXIDE 23 20 - 32 mmol/L [facility] ELECTROLYTE BALANCE 13 7 - 17 mmol/L (calc) [facility] CALCIUM 10.1 8.6 - 10.4 mg/dL [facility] Blood BLOOD SPECIMEN / Unknown 12/22/2024 3:19 PM CDT 12/22/2024 3:19 PM CDT Kale Ga MD CHEMISTRY Final Result [facility] [address] [place] [address], [facility] [address] [place] [address] * (ABNORMAL) LIPID PANEL W REFLEX MEASURED LDL (12/22/2024 3:15 PM CDT) [facility] Signature CHOLESTEROL, TOTAL 183 <200 mg/dL [facility] HDL CHOLESTEROL 47(L) > OR = 50 mg/dL [facility] TRIGLYCERIDES 283(H) <150 mg/dL [facility] Comment: If a non-fasting specimen was collected, consider repeat triglyceride testing on a fasting specimen if clinically indicated. Jaycee et al. J. of Clin. Lipidol. 2015;9:129-169. LDL-CHOLESTEROL 96 mg/dL (calc) [facility] Comment: Reference range: <100 Desirable range <100 mg/dL for primary prevention; <70 mg/dL for patients with CHD or diabetic patients with > or = 2 CHD risk factors. LDL-C is now calculated using the Imtiaz calculation, which is a validated novel method providing better accuracy than the Friedewald equation in the estimation of LDL-C. Ray BECKHAM et al. GISSELL. 2013;310(19): 3995-6232 (http://education.WrapMail/faq/SVU805) CHOL/HDLC RATIO 3.9 <5.0 (calc) [facility] NON HDL CHOLESTEROL 136(H) <130 mg/dL (calc) [facility] Comment: For patients with diabetes plus 1 major ASCVD risk factor, treating to a non-HDL-C goal of <100 mg/dL (LDL-C of <70 mg/dL) is considered a therapeutic option. Blood BLOOD SPECIMEN / Unknown 12/22/2024 3:15 PM CDT 12/22/2024 3:16 PM CDT Case Fulton MD CHEMISTRY Final Res ult [facility] [address] [place] [address], [facility] [address] [place] [address] * US RENAL AND BLADDER COMPLETE (11/27/2024 9:36 AM POWER BENDER OPERATOR) Anatomical Region Laterality Modality Abdomen, AORTA, KIDNEYS Ultrasou nd 11/28/2024 2:17 AM POWER BENDER OPERATOR Impressions 11/28/2024 2:17 AM POWER BENDER OPERATOR Atrophic echogenic kidneys consistent with known chronic renal disease. Dictated by Dion Alejandro MD @ 11/28/2024 2:17:54 AM (Electronically Signed) Narrative 11/28/2024 2:17 AM POWER BENDER OPERATOR For Patients: As a result of the Century Cures Act, medical imaging exams and procedure reports are released immediately into your electronic medical record. You may view this report before your referring provider. If you have questions, please contact your health care provider. INDICATION: Stage III B chronic kidney disease. TECHNIQUE: Ultrasound renal and bladder complete. Zaragoza-scale and color Doppler sonographic images were acquired of the kidneys and urinary bladder. COMPARISON: None. FINDINGS: Right kidney: 10.4 x 5.2 x 5.1 cm. Atrophic with echogenic parenchyma. Simple cyst with peripheral calcification measuring up to 3.3 cm. No suspicious masses, stones, or hydronephrosis. Left kidney: 9.9 x 5.3 x 4.8 cm. Atrophic with echogenic parenchyma. No suspicious masses, stones, or hydronephrosis. Bladder: Unremarkable in caliber and appearance. Procedure Note Dion Alejandro MD - 11/28/2024 For Patients: As a result of the Cures Act, medical imagingexams and procedure reports are released immediately into your electronicmedical record. You may view this report before your referring provider.If you have questions, please contact your health care provider. INDICATION: Stage III B chronic kidney disease. TECHNIQUE: Ultrasound renal and bladder complete. Zaragoza-scale and color Dopplersonographic images were acquired of the kidneys and urinary bladder. COMPARISON: None. FINDINGS: Right kidney: 10.4 x 5.2 x 5.1 cm. Atrophic with echogenic parenchyma.Simple cyst with peripheral calcification measuring up to 3.3 cm. Nosuspicious masses, stones, or hydronephrosis. Left kidney: 9.9 x 5.3 x 4.8 cm. Atrophic with echogenic parenchyma. Nosuspicious masses, stones, or hydronephrosis. Bladder: Unremarkable in caliber and appearance. IMPRESSION: Atrophic echogenic kidneys consistent with known chronic renal disease. Dictated by Dion Alejandro MD @ 11/28/2024 2:17:54 AM (Electronically Signed) Kale Ga MD Final Result * (ABNORMAL) POCT Urinalysis Dipstick Only (11/02/2024 2:15 PM POWER BENDER OPERATOR) COLOR Yellow Yellow Color 11/02/2024 3:37 PM POWER BENDER OPERATOR [facility] CLARITY Slightly Cloudy(A) Clear Clarity 11/02/2024 3:37 PM POWER BENDER OPERATOR [facility] SPECIFIC GRAVITY,URINE 1.025 1.010, 1.015, 1.020, 1.025 11/02/2024 3:37 PM POWER BENDER OPERATOR [facility] PH,URINE 5.5 6.0, 7.0, 8.0, 5.5, 6.5, 7.5, 8.5 11/02/2024 3:37 PM POWER BENDER OPERATOR [facility] UROBILINOGEN, QUALITATIVE Normal Normal EU/dl 11/02/2024 3:37 PM POWER BENDER OPERATOR [facility] PROTEIN, URINE >=300(A) Negative mg/dL 11/02/2024 3:37 PM POWER BENDER OPERATOR [facility] GLUCOSE, URINE Negative Negative mg/dL 11/02/2024 3:37 PM POWER BENDER OPERATOR [facility] KETONES,URINE Negative Negative mg/dL 11/02/2024 3:37 PM POWER BENDER OPERATOR [facility] BILIRUBIN,URI NE Negative Negative 11/02/2024 3:37 PM POWER BENDER OPERATOR [facility] OCCULT BLOOD,URINE Trace(A) Negative 11/02/2024 3:37 PM POWER BENDER OPERATOR [facility] NITRITE Negative Negative 11/02/2024 3:37 PM POWER BENDER OPERATOR [facility] LEUKOCYTE ESTERASE Negative Negative 11/02/2024 3:37 PM POWER BENDER OPERATOR [facility] Urine URINE SPECIMEN / Unknown Non-Blood / Unknown 11/02/2024 2:15 PM POWER BENDER OPERATOR 11/02/2024 3:33 PM POWER BENDER OPERATOR us Kale Ga MD URINE Final Result [facility] [address] [place] [address], * (ABNORMAL) URINALYSIS MICROSCOPIC (11/02/2024 2:15 PM POWER BENDER OPERATOR) RBC 0-2 0-2, None Seen /HPF 11/03/2024 1:03 AM POWER BENDER OPERATOR [facility] WBC 6-10(A) 0-2, 3-5, None Seen /HPF 11/03/2024 1:03 AM POWER BENDER OPERATOR [facility] BACTERIA Rare None Seen, Rare, Few Bacteria/ HPF 11/03/2024 1:03 AM POWER BENDER OPERATOR [facility] EPITHELIAL CELLS Moderate(A ) None Seen, Few Epi/HPF 11/03/2024 1:03 AM POWER BENDER OPERATOR [facility] HYALINE CASTS 0-2 0-2, 3-5 /LPF 11/03/2024 1:03 AM POWER BENDER OPERATOR [facility] URIC ACID CRYSTALS Present(A) (none) 11/03/2024 1:03 AM POWER BENDER OPERATOR [facility] Urine URINE SPECIMEN / Unknown Non-Blood / Unknown 11/02/2024 2:15 PM POWER BENDER OPERATOR 11/02/2024 3:37 PM POWER BENDER OPERATOR Kale Ga MD URINE Final Result Performing Organization Address [facility]/ZIP Co de Phone Number [facility] [address] [place] [id number], [place] * (ABNORMAL) PROTEIN/CREAT RATIO,URINE (11/02/2024 2:15 PM POWER BENDER OPERATOR) PROTEIN QUANT,RAND URINE 188(H) 1 - 14 mg/dL 11/02/2024 11:36 PM POWER BENDER OPERATOR [facility] CREAT,RANDOM URINE 105.0 28.0 - 217.0 mg/dL 11/02/2024 11:36 PM POWER BENDER OPERATOR [facility] PROT/CREAT RATIO,UR 1.8(H) <0.2 11/02/2024 11:36 PM POWER BENDER OPERATOR [facility] Urine URINE SPECIMEN / Unknown Non-Blood / Unknown 11/02/2024 2:15 PM POWER BENDER OPERATOR 11/02/2024 3:33 PM POWER BENDER OPERATOR Kale Ga MD URINE Final Result Performing Organization Address [facility]/ZIP Co de Phone Number [facility] [address] [place] [id number], [place] * URINE CULTURE [26212.2] (11/02/2024 2:15 PM POWER BENDER OPERATOR) CULTURE 10-50,000 CFU/mL of multiple organisms, probable contaminants 11/04/2024 8:50 AM POWER BENDER OPERATOR [facility] Urine URINE SPECIMEN / Unknown Non-Blood / Unknown 11/02/2024 2:15 PM POWER BENDER OPERATOR 11/02/2024 3:37 PM POWER BENDER OPERATOR us Kale Ga MD MICROBIOLOGY Final Result Performing Organization Address [facility]/ZIP Co de Phone Number [facility] [address] [place] [address], [place] * (ABNORMAL) URINE ALBUMIN TO CREATININE RATIO, RANDOM (11/02/2024 2:15 PM POWER BENDER OPERATOR) ALB RAND URINE 1,161.0 mg/L 11/02/2024 11:59 PM POWER BENDER OPERATOR [facility] CREATININE,URIN E 1.05 g/L 11/02/2024 11:59 PM POWER BENDER OPERATOR [facility] ALBUMIN TO CREATININE RATIO,RAND UR 1,105.7(H) <30.0 mg/g creat 11/02/2024 11:59 PM POWER BENDER OPERATOR [facility] Urine URINE SPECIMEN / Unknown Non-Blood / Unknown 11/02/2024 2:15 PM POWER BENDER OPERATOR 11/02/2024 3:33 PM POWER BENDER OPERATOR Narrative [facility] - 11/02/2024 11:59 PM POWER BENDER OPERATOR If Albumin to Creatinine Ratio is elevated, consider the following: Elevations seen with incipient nephropathy associated with diabetes mellitus or hypertension. Stress, exercise,hematuria, and urinary tract infection may also produce elevated results. If clinically indicated, confirm with 24 Hour Albumin to Creatinine Ratio. us Kale Ga MD URINE Final Result Performing Organization Address [facility] Co de Phone Number [facility] [address] [place] [address], [place] * (ABNORMAL) CBC WITH AUTO DIFFERENTIAL (11/02/2024 10:07 AM POWER BENDER OPERATOR) WHITE BLOOD CELL COUNT 11.6(H) 3.8 - 10.8 Thousand/ uL 11/03/2024 5:36 AM POWER BENDER OPERATOR [facility] RED BLOOD CELL COUNT 4.73 3.80 - 5.10 Million/u L 11/03/2024 5:36 AM POWER BENDER OPERATOR [facility] HEMOGLOBIN 12.5 11.7 - 15.5 g/dL 11/03/2024 5:36 AM POWER BENDER OPERATOR [facility] HEMATOCRIT 39.7 35.0 - 45.0 % 11/03/2024 5:36 AM POWER BENDER OPERATOR [facility] MCV 83.9 80.0 - 100.0 fL 11/03/2024 5:36 AM POWER BENDER OPERATOR [facility] MCH 26.4(L) 27.0 - 33.0 pg 11/03/2024 5:36 AM POWER BENDER OPERATOR [facility] MCHC 31.5(L) 32.0 - 36.0 g/dL 11/03/2024 5:36 AM POWER BENDER OPERATOR [facility] Comment: For adults, a slight decrease in the calculated MCHC value (in the range of 30 to 32 g/dL) is most likely not clinically significant; however, it should be interpreted with caution in correlation with other red cell parameters and the patient's clinical condition. RDW 14.6 11.0 - 15.0 % 11/03/2024 5:36 AM POWER BENDER OPERATOR [facility] PLATELET COUNT 170 140 - 400 Thousand/ uL 11/03/2024 5:36 AM POWER BENDER OPERATOR [facility] MPV 11.7 7.5 - 12.5 fL 11/03/2024 5:36 AM POWER BENDER OPERATOR [facility] NEUTROPHILS 71.8 % 11/03/2024 5:36 AM POWER BENDER OPERATOR [facility] LYMPHOCYTES 19.1 % 11/03/2024 5:36 AM POWER BENDER OPERATOR [facility] MONOCYTES 5.8 % 11/03/2024 5:36 AM POWER BENDER OPERATOR [facility] EOSINOPHILS 2.9 % 11/03/2024 5:36 AM POWER BENDER OPERATOR [facility] BASOPHILS 0.4 % 11/03/2024 5:36 AM POWER BENDER OPERATOR [facility] ABSOLUTE NEUTROPHILS 8329(H) 1500 - 7800 cells/uL 11/03/2024 5:36 AM POWER BENDER OPERATOR [facility] ABSOLUTE LYMPHOCYTES 2216 850 - 3900 cells/uL 11/03/2024 5:36 AM POWER BENDER OPERATOR [facility] ABSOLUTE MONOCYTES 673 200 - 950 cells/uL 11/03/2024 5:36 AM POWER BENDER OPERATOR [facility] ABSOLUTE EOSINOPHILS 336 15 - 500 cells/uL 11/03/2024 5:36 AM POWER BENDER OPERATOR [facility] ABSOLUTE BASOPHILS 46 0 - 200 cells/uL 11/03/2024 5:36 AM POWER BENDER OPERATOR [facility] Blood BLOOD SPECIMEN / Unknown Non-Lab Venipuncture / Unknown 11/02/2024 10:07 AM POWER BENDER OPERATOR 11/02/2024 10:07 AM POWER BENDER OPERATOR us Kale Ga MD HEMATOLOGY Final Result Performing Organization Address [facility]/ZIP Co de Phone Number [facility] [address] [address], * VITAMIN D 25 (DEFICIENCY) (11/02/2024 10:07 AM POWER BENDER OPERATOR) VITAMIN D,25-OH,TOTAL,IA 61 30 - 100 ng/mL 11/03/2024 6:20 AM POWER BENDER OPERATOR [facility] Comment: Vitamin D Status 25-OH Vitamin D: Deficiency: <20 ng/mL Insufficiency: 20 - 29 ng/mL Optimal: > or = 30 ng/mL For 25-OH Vitamin D testing on patients on D2-supplementation and patients for whom quantitation of D2 and D3 fractions is required, the QuestAssureD(TM) 25-OH VIT D, (D2,D3), LC/MS/MS is recommended: order code 63067 (patients >2yrs). See Note 1 Note 1 For additional information, please refer to http://education.WrapMail/faq/JOI162 (This link is being provided for informational/ educational purposes only.) Blood BLOOD SPECIMEN / Unknown Non-Lab Venipuncture / Unknown 11/02/2024 10:07 AM POWER BENDER OPERATOR 11/02/2024 10:07 AM POWER BENDER OPERATOR us Kale Ga MD SEND OUTS Final Result Performing Organization Address [facility]/ZIP Co de Phone Number [facility] [address] [place] [phone], [place] [phone] * PHOSPHORUS (11/02/2024 10:07 AM POWER BENDER OPERATOR) PHOSPHATE ( PHOSPHORUS) 3.3 2.5 - 4.5 mg/dL 11/03/2024 5:59 AM POWER BENDER OPERATOR [facility] Blood BLOOD SPECIMEN / Unknown Non-Lab Venipuncture / Unknown 11/02/2024 10:07 AM POWER BENDER OPERATOR 11/02/2024 10:07 AM POWER BENDER OPERATOR us Kale Ga MD CHEMISTRY Final Result [facility] [address] [address], * PTH,INTACT (11/02/2024 10:07 AM POWER BENDER OPERATOR) PARATHYROID HORMONE, INTACT 23 16 - 77 pg/mL 11/03/2024 11:38 AM POWER BENDER OPERATOR [facility] Comment: Interpretive Guide Intact PTH Calcium ------- Normal Parathyroid Normal Normal Hypoparathyroidism Low or Low Normal Low Hyperparathyroidism Primary Normal or High High Secondary High Normal or Low Tertiary High High Non-Parathyroid Hypercalcemia Low or Low Normal High CALCIUM 9.6 8.6 - 10.4 mg/dL 11/03/2024 11:38 AM POWER BENDER OPERATOR [facility] Blood BLOOD SPECIMEN / Unknown Non-Lab Venipuncture / Unknown 11/02/2024 10:07 AM POWER BENDER OPERATOR 11/02/2024 10:07 AM POWER BENDER OPERATOR us Kale Ga MD SEND OUTS Final Result Performing Organization Address [facility]/ZIP Co de Phone Number [facility] [address] [phone], * (ABNORMAL) HEPATIC FUNCTION PANEL (11/02/2024 10:07 AM POWER BENDER OPERATOR) ALBUMIN 4.0 3.6 - 5.1 g/dL 11/03/2024 5:59 AM POWER BENDER OPERATOR [facility] PROTEIN, TOTAL 6.9 6.1 - 8.1 g/dL 11/03/2024 5:59 AM POWER BENDER OPERATOR [facility] BILIRUBIN, TOTAL 0.2 0.2 - 1.2 mg/dL 11/03/2024 5:59 AM POWER BENDER OPERATOR [facility] BILIRUBIN, DIRECT 0.1 < OR = 0.2 mg/dL 11/03/2024 5:59 AM POWER BENDER OPERATOR [facility] BILIRUBIN, INDIRECT 0.1(L) 0.2 - 1.2 mg/dL (calc) 11/03/2024 5:59 AM POWER BENDER OPERATOR [facility] ALKALINE PHOSPHATASE 138 37 - 153 U/L 11/03/2024 5:59 AM POWER BENDER OPERATOR [facility] ALT 23 6 - 29 U/L 11/03/2024 5:59 AM POWER BENDER OPERATOR [facility] AST 19 10 - 35 U/L 11/03/2024 5:59 AM POWER BENDER OPERATOR [facility] GLOBULIN 2.9 1.9 - 3.7 g/dL (calc) 11/03/2024 5:59 AM POWER BENDER OPERATOR [facility] ALBUMIN/GLOBULIN RATIO 1.4 1.0 - 2.5 (calc) 11/03/2024 5:59 AM POWER BENDER OPERATOR [facility] Blood BLOOD SPECIMEN / Unknown Non-Lab Venipuncture / Unknown 11/02/2024 10:07 AM POWER BENDER OPERATOR 11/02/2024 10:07 AM POWER BENDER OPERATOR Kale Ga MD CHEMISTRY Final Result [facility] [address] [place] [address], * XR MAMMO BANDAR BILAT SCREEN (09/28/2024 4:07 PM POWER BENDER OPERATOR) Anatomical Region Laterality Modality BREASTS, Breast Left, Breast Right Bilateral Mammography Impressions 09/29/2024 1:18 PM POWER BENDER OPERATOR There is no radiographic evidence for malignancy. Recommend annual mammograms. MAMMOGRAM ASSESSMENT: ACR 1 Negative PATIENTS: You will also receive a letter with your examination results in an easy to read format. If you have questions about your results, please contact your referring provider. Narrative 09/29/2024 1:18 PM POWER BENDER OPERATOR For Patients: As a result of the 21st Century Cures Act, medical imaging exams and procedure reports are released immediately into your electronic medical record. You may view this report before your referring provider. If you have questions, please contact your health care provider. XR MAMMO BANDAR BILAT SCREEN [[id number]] CLINICAL HISTORY: This is an asymptomatic 64 y.o. patient. INDICATION FOR EXAM: Mammogram Screening. TECHNIQUE: CC & MLO views were obtained. This study was evaluated with the assistance of Computer-Aided Detection. Breast Tomosynthesis was used in interpretation. COMPARISON FILM: Yes 02/19/23 [facility] 07/13/20 [facility] FINDINGS: There are scattered areas of fibroglandular density. There are no dominant masses, suspicious micro calcifications or areas of architectural distortion. Nicki Vela DO MAMMO Final Resu lt * ANTI HCV (11/21/2020 3:43 PM POWER BENDER OPERATOR) HEPATITIS C ANTIBODY Non-React marii Non-React marii 11/21/2020 8:46 PM POWER BENDER OPERATOR [facility] Comment:Antibodies to HCV no t detected; does not exclude the possibility of exposure to HCV. Blood BLOOD SPECIMEN / Unknown Butterfly / Unknown 11/21/2020 3:43 PM POWER BENDER OPERATOR 11/21/2020 3:44 PM POWER BENDER OPERATOR Nicki Vela DO SEND OUTS Final Resu lt [facility] [address] [place] [address], [place] * (ABNORMAL) ASSET PROTECTION OFFICER THIN PREP PAP SCREEN IMAGED [[id number]] (08/08/2020 9:03 AM CDT) Case Report Gynecologic Cytology Report Case: [id number] Authorizing Provider: Nicki Vela DO Collected: 08/08/2020 0903 Ordering Location: [facility] Received: 08/08/2020 0933 Clinic First Screen: Shahida Pires Pathologist: Jimbo Bautista Jr., MD Specimen: ASSET PROTECTION OFFICER ThinPrep Vial Screening, Cervical 08/15/2020 3:57 PM POWER BENDER OPERATOR [facility] INTERPRETATION/ RESULT ATYPICAL SQUAMOUS CELLS OF UNDETERMINED SIGNIFICANCE (ASCUS)(A) (none) 08/15/2020 3:57 PM POWER BENDER OPERATOR [facility]- ENTRAL [facility] IMEN ADEQUACY Satisfactory for evaluation Endocervical component present 08/15/2020 3:57 PM POWER BENDER OPERATOR [facility] HPV REQUEST HPV and PAP 08/15/2020 3:57 PM POWER BENDER OPERATOR [facility] Date of LMP 08/14/2013 08/15/2020 3:57 PM POWER BENDER OPERATOR [facility] Last Pap Date 04/28/15 08/15/2020 3:57 PM POWER BENDER OPERATOR [facility] Last Pap Result NIL 0 3:57 PM POWER BENDER OPERATOR [facility] Abnormal Pap or [place] Bx in last 5 years No 08/15/2020 3:57 PM POWER BENDER OPERATOR [facility] Menstrual Status Postmenopausal 08/15/2020 3:57 PM POWER BENDER OPERATOR [facility] [place] Bx Done Today No 08/15/2020 3:57 PM POWER BENDER OPERATOR [facility] Additional Information None given 08/15/2020 3:57 PM POWER BENDER OPERATOR [facility] Comment: Cytology is screened at [facility] - [address], [place] [address] and [facility] - [address], [place] [address] and [facility] - [address] [place] [address] Interpreted at [facility] - [address], [place] [address] Automated Review Successful 08/15/2020 3:57 PM POWER BENDER OPERATOR [facility] Comment:Specimen processed s uccessfully by automated zipper machine operator device, ThinPrep Imaging System, [employer] ANCILLARY TESTING ASSET PROTECTION OFFICER HPV Ordered, Please see separate report 08/15/2020 3:57 PM POWER BENDER OPERATOR [facility] Note The pap test is a screening technique, not a diagnostic procedure. It is used primarily to screen for squamous cancers and precursor lesions. Published studies have shown that it is subject to both false negative and false positive results. The pap test should not be used as the sole means to diagnose or exclude pre-malignant and malignant lesions. 08/15/2020 3:57 PM POWER BENDER OPERATOR [facility] Other (Cervical) Non-Blood / Unknown 08/08/2020 9:03 AM CDT 08/08/2020 9:33 AM CDT us Nicki Ann Dane DO PATHOLOGY/CYTOLOGY Final R esult [facility] [address] [place] [address], [place] * COLONOSCOPY (05/28/2019 11:30 AM CDT) 05/28/2019 11:3 0 AM CDT Narrative Transcriptions Ray Dixon MD - 05/28/2019 12:25 PM CDT Patient Name: Shahida Wong Procedure Date: 05/28/2019 Gender: Female Date of : 1960 Admit Type: Outpatient Procedure: Colonoscopy Proceduralist: Ray Dixon MD , Eladia Toscano, RN(Nurse) Indications/Pre-Op Diagnosis: Surveillance: Personal history ofadenomatous polyps on last colonoscopy 5 years ago, Last colonoscopy: May 2014 Medications: Fentanyl 100 micrograms IV, Midazolam 2 mgIV, The level of sedation administered wasmoderate Procedure Description: The patient had risks, benefits and alternatives explained to andgave informed consent. The patient had a stable cardiopulmonary status and judged an adequate candidate for conscious sedation. The [id number] was passed through the anus and advanced tothe cecum, identified by appendiceal orifice and ileocecal valve. The colonoscopy was performed without difficulty. The patient toleratedthe procedure well. The quality of the bowel preparation was good. The ileocecal valve, appendiceal orifice, and rectum were photographed. Complications: No immediate complications. Estimated Blood Loss & Specimen: Estimated blood loss: none. Specimen collected - Yes and sent to Laboratory Findings: The perianal and digital rectal examinations were normal. Four sessile polyps were found in the transverse colon. The polypswere 3 mm in size. These polyps were removed with a cold snare. Resectionand retrieval were complete. The exam was otherwise without abnormality on direct and retroflexion views. Impressions/Post-Op Diagnosis: - Four 3 mm polyps in the transverse colon, removed with a coldsnare. Resected and retrieved. - The examination was otherwise normal on direct and retroflexionviews. Recommendation: - Patient has a contact number available for emergencies. The signsand symptoms of potential delayed complications were discussed with the patient. Return to normal activities tomorrow. Written discharge instructions were provided to the patient. - Resume previous diet. - Continue present medications. - Await pathology results. - Repeat colonoscopy is recommended. The colonoscopy date will be determined after pathology results from today's exam become available for review. Moderate Sedation: Moderate (conscious) sedation was administered by the endoscopy nurse and supervised by the endoscopist. The following parameters were monitored: oxygen saturation, heart rate, respiratory rate, blood pressure, adequacy of pulmonary ventilation and reponse to care. [facility] and nursing notes for moderate sedation details. Total physician intraservice time was 18 minutes. Ray Dixon MD 05/28/2019 12:24:57 PM This report has been signed electronically. Note Initiated On: 05/28/2019 11:30 AM Procedure Code(s): --- Professional --- 20899, Colonoscopy, flexible; with removalof tumor(s), polyp(s), or other lesion(s) bysnare technique Diagnosis Code(s): --- Professional --- Z86.010, Personal history of colonicpolyps D12.3, Benign neoplasm of transverse colon (hepatic flexure or splenic flexure) CPT copyright 2018 [employer]. All rights reserved. The codes documented in this report are preliminary and upon furnace unloader reviewmay be revised to meet current compliance requirements. Scope In: 12:05:01 PM Scope Withdrawal Time 0 hours 8 minutes 57 seconds Scope Out: 12:21:40 PM Ray Dixon MD PROCEDURE ORD Final Res ult from Last 3 Months or Most Recently Relevant to Health Maintenance Insurance [facility] Advance Directives * Full Code (Latest Code Status on File) Date Activated Date Inactivated Comments 08/14/2022 6:49 AM 08/14/2022 2:00 PM Question Answer Comments Code Status Discussion: Reviewed Preferences * Full Code Date Activated Date Inactivated Comments 07/24/2022 10:22 AM 07/24/2022 6:41 PM Question Answer Comments Code Status Discussion: Unable to Assess Preferences, Provider to review later * Full Code Date Activated Date Inactivated Comments 10/23/2021 7:31 AM 10/24/2021 1:16 PM Question Answer Comments Code Status Discussion: Reviewed Preferences * Full Code Date Activated Date Inactivated Comments 10/23/2021 6:51 AM 10/23/2021 7:31 AM Question Answer Comments Code Status Discussion: Unable to Assess Preferences, Provider to review later * Full Code Date Activated Date Inactivated Comments 10/11/2014 12:10 AM 10/12/2014 1:46 PM Care Teams Title Supervisor Relationship Specialty Start Date End Date Nicki Vela DO [address] [place] [address] PCP - General Family Practice 10/16/13 [place] [address] [place] [address] Nephrology 11/02/24
[2025-01-08 10:04] VITALS: BP 168/80; PULSE 80; RESP 18; TEMP 35.7; O2SAT 97; BMI 35.7
--- NOTE | 2025-01-08 10:27 | CRLHL7_ITS ---
For Patients: As a result of the Century Cures Act, medical imaging exams and procedure reports are released immediately into your electronic medical record. You may view this report before your referring provider. If you have questions, please contact your health care provider. Indication: RT FLANK PAIN. NAUSEA Technique: CT abdomen/pelvis without IV contrast Comparison: None Findings: Lower thorax: Cardiomegaly. Coronary artery calcifications. No focal airspace consolidation, pleural effusion, or pneumothorax. Minimal bibasilar atelectasis. No suspicious pulmonary nodules or masses. Abdomen/pelvis: The liver, gallbladder and biliary system, spleen, pancreas, and adrenal glands are unremarkable in appearance. Slightly atrophic kidneys bilaterally. Likely simple appearing exophytic cyst at the interpolar region of the right kidney measuring 3.2 centimeters in greatest dimension, incompletely characterized on this exam. There is an obstructing 3 millimeter stone in the distal right ureter (series number 2, image 127) causing mild right-sided hydroureteronephrosis. Nonobstructing stones in the left kidney with no left-sided hydroureteronephrosis. The bladder is unremarkable in appearance. The uterus and bilateral adnexa are unremarkable. No evidence of bowel obstruction or inflammation. The appendix is normal. No free air, free fluid, or fluid collections. No abdominopelvic lymphadenopathy. No abdominal aortic aneurysm. Mild calcific atherosclerosis of the aortoiliac system. Soft tissue/musculoskeletal: Diastasis recti with small fat containing umbilical hernia. No acute fracture or malalignment. Degenerative changes of the spine. No suspicious osseous lesions. Impression: Mild right-sided hydroureteronephrosis secondary to an obstructing 3 millimeter stone in the distal right ureter. Please note that all CT scans at this facility use dose modulation, iterative reconstruction, and/or weight-based dosing when appropriate to reduce radiation dose to as low as reasonably achievable. Dictated by Garett Camarillo MD @ 01/08/2025 11:20:46 AM (Electronically Signed)
[2025-01-08] MEDS: ONDANSETRON 2 MG/ML inj 4 MG IVP ×2 (10:38→11:52)
[2025-01-08] MEDS: 0.9 % SODIUM CHLORIDE 1000 ml 1,000 ML IV (10:38)
[2025-01-08 10:50] LABS: Lactate* 1.6 mmol/L (0.5-1.9)
[2025-01-08 10:58] LABS: Basophils Percent Auto 0.1 % (0.0-3.0); Eosinophils Percent Auto 1.9 % (0.0-7.0); Hematocrit 42.9 % (33.0-51.0); Hemoglobin* 13.8 gm/dL (12.0-16.0); Immature Granulocytes Pct Auto 0.2 %; Lymphocytes Percent Auto 12.2 % (20-44); Mean Corpuscular HGB Conc 32 gm/dL (32-36); Mean Corpuscular Hemoglobin 26 pg (26-34); Mean Corpuscular Volume 82 fL (80-100); Monocytes Percent Auto 4.2 % (0.0-11.0); Neutrophils Percent Auto 81.4 % (42.0-72.0); Platelet Count* 188 K/uL (140-440); RDW Coefficient of Variation % 14.6 % (11.5-15.5); Red Blood Count 5.23 m/uL (4.00-5.20); White Blood Count* 13.46 K/uL (4.50-11.00)
[2025-01-08 10:59] LABS: Slide Review Reflex No
[2025-01-08 11:07] LABS: Albumin* 4.7 g/dL (3.3-5.0); Chloride* 106 mmol/L (96-114); Potassium* 4.1 mmol/L (3.6-5.1); Sodium* 141 mmol/L (135-149)
[2025-01-08 11:09] LABS: Blood Urea Nitrogen* 27 mg/dL (7-30); Creatinine* 1.2 mg/dL (0.5-1.5); Est. Creatinine Clearance* 41.97; Estimated Glomerular Filt Rate 51 ml/min
[2025-01-08 11:10] LABS: Alanine Aminotransferase* 34 U/L (4-35); Alkaline Phosphatase* 147 U/L (40-150); Anion Gap 11 mEq/L (7-15); Aspartate Amino Transferase* 36 U/L (12-35); Bilirubin Direct* 0.3 mg/dL (0.0-0.5); Bilirubin Total* 0.5 mg/dL (0.1-1.5); Calcium* 9.6 mg/dL (8.4-10.6); Carbon Dioxide* 24 mmol/L (20-32); Glucose* 140 mg/dL (60-115); Lipase* 154 U/L (23-300)
[2025-01-08 11:11] LABS: Appearance Urine Slightly Cloudy (Clear); Bilirubin Urine Negative (Negative); Blood Urine 2+ (Negative); Color Urine Light yellow (Yellow); Glucose Urine Negative (Negative); Ketones Urine Negative (Negative); Leukocyte Esterase Urine Negative (Negative); Nitrite Urine Negative (Negative); Protein Urine 3+ (Negative); Urobilinogen Urine 0.2 (0.2-1.0); pH Urine 5.5 (5.0-8.5)
[2025-01-08 11:13] LABS: C Reactive Protein* 0.5 mg/dL (0.5-1.0)
[2025-01-08 11:23] LABS: Bacteria Urine Moderate; RBC Urine 25-50 (0-2); Squamous Epithelial Cell Urine Moderate (None-Few)
--- OUTSIDE RECORDS SUMMARY | 2025-01-08 11:32 | XMS_ITS ---
Author Name Interface, [id number] lity Address [address] [facility] [address] [address] Organization [facility] Address [address] [facility] [address] [address] Care Team Providers Care Special Events Assistant Name Role Phone Kirill Hurtado Unavailable Allergies and Adverse Reactions Medication/Group Name Reaction Severity Date morphine 07/30/2022 Brilinta 07/30/2022 Plan Date Type Value 08/14/2022 APPOINTMENT SURGERY 2 HR 08/09/2022 APPOINTMENT SURGERY 3 HR 07/30/2022 APPOINTMENT NEW PT CONSULT 3 0 MIN 07/31/2022 [facility] Chest x-ray, PA and lateral Reason for Visit SURGERY 2 HR Encounters Date Name 07/30/2022 Broncholith Immunizations Date Name Route Dose Instructions Refusal Reason Stat us Covid-19 vaccine (Pfizer) Completed Covid-19 vaccine (Pfizer) Completed Covid-19 vaccine (Pfizer) Completed Covid-19 vaccine (Pfizer) Completed Diagnostic Results Date Type Test Units Lower Limit Upper Limit Result Flag Comments Status Ordered By Specimen Source Lab Address 08/14 [facility] other lab See completion manager d Medications Date Name Route Dose Frequency [...]
--- OUTSIDE RECORDS SUMMARY | 2025-01-08 11:32 | XMS_ITS | CCD ---
Author Name Interface, [id number] lity Address [address] [facility] [address] [place] [address] [facility] Address [address] [facility] [address] [place] [address] Care Team Providers Care Pe Electrical Engineer Name Role Phone Kirill Hurtado Unavailable Unavailable Care Plan Reason for Visit Encounters Medications Problems Social History
--- OUTSIDE RECORDS SUMMARY | 2025-01-08 11:32 | XMS_ITS ---
Author Name Interface, [id number] lity Address [address] [facility] [address] [address] Organization [facility] Address [address] [facility] [address] [address] Care Team Providers Care Foundation Assistant Name Role Phone Kirill Hurtado Unavailable Allergies and Adverse Reactions Medication/Group Name Reaction Severity Date morphine 07/30/2022 Brilinta 07/30/2022 Plan Date Type Value 08/14/2022 APPOINTMENT SURGERY 2 HR 08/09/2022 APPOINTMENT SURGERY 3 HR 07/30/2022 APPOINTMENT NEW PT CONSULT 3 0 MIN 07/31/2022 [facility] Chest x-ray, PA and lateral Reason for Visit SURGERY 2 HR Encounters Date Name 07/30/2022 Broncholith Immunizations Date Name Route Dose Instructions Refusal Reason Stat us Covid-19 vaccine (Pfizer) Completed Covid-19 vaccine (Pfizer) Completed Covid-19 vaccine (Pfizer) Completed Covid-19 vaccine (Pfizer) Completed Diagnostic Results Date Type Test Units Lower Limit Upper Limit Result Flag Comments Status Ordered By Specimen Source Lab Address 08/14 [facility] other lab See crankshaft balancer d Medications Date Name Route Dose Frequency [...]
--- OUTSIDE RECORDS SUMMARY | 2025-01-08 11:32 | XMS_ITS | CCD ---
Author Name Interface, [id number] lity Address [address] [address] Organization [facility] Address [address] [address] Care Team Providers Care Environmental Laboratory Technician Name Role Phone Bryant Kirill Unavailable Unavailable Care Plan Date Type Value 07/31/2022 ALEXA Chest x-ray, PA and lateral Reason for Visit SURGERY 2 HR Encounters Date Name 07/30/2022 Broncholith Medications Date Name Route Dose Frequency Instructions Start Date End Date Status Atorvastatin Oral daily active Omeprazole Oral Delayed Release Capsule daily active Furosemide Oral daily a ctive Zinc Oral 50.0 mg daily active Semaglutide Subcutaneous Pen Injector weekly active Aspirin Oral daily acti ve Clopidogrel Oral daily active Insulin Glargine Subcutaneous 100 unit/mL active Metformin Oral 1.0 tablet BID active Nitroglycerin Sublingual PRN active Metoprolol Oral (Tartrate) 1.0 tablet BID active Ezetimibe Oral daily ac tive Tramadol Oral Q6H PRN ac tive Multivitamins Oral Tablet active Lisinopril Oral a ctive Cholecalciferol Oral active Problems Diagnosis Status Date of Diagnosi s Broncholith Active Social History Date Name Value 08/08/2022 Sex Female
--- OUTSIDE RECORDS SUMMARY | 2025-01-08 11:32 | XMS_ITS | Clinical Summary ---
Author Organization [facility] Address [address] [place] [address] Care Team Providers Care Right Of Way Supervisor Name Role Phone Nicki Vela DO Primary Care Provider [phone] Kale Ga MD Unavailable Allergies Active Allergy [...] be used to read blood sugars per children's lunchroom supervisor's directions. 1 Each 023 Active nitroglycerin (Nitrostat) [...] Type Department Care Team Description 12/31/2024 Refill [facility] [address] [place] [address] Nicki Vela DO Refill Request (Losartan) 12/28/2024 9:15 AM CDT Office Visit [facility] [address] [place] [address] Kale Ga MD Follow Up (Stage 3b chronic kidney disease (HC)) 12/28/2024 Travel 12/23/[address] [facility] [address] [place], [place] [id number] Case Fulton MD Results (Labs) 12/22/2024 3:45 PM CDT Orders Only [facility] [address] [place] [address] Lab, [place] Lab 12/22/2024 3:00 PM CDT Office Visit [facility] [address] [place] [address] Case Fultno MD Follow Up (Follow up coronary artery disease ) 12/22/2024 Travel 11/27/2024 9:00 AM RESOURCE PARAPROFESSIONAL Ancillary Procedure [facility] [address] [address] 11/27/2024 Travel 11/03/2024 Telephone [facility] [address] [place] [address] Kale Ga MD Results; Follow Up (Nephrology Post Visit (11/02/2024) RN Follow-up Call /) 11/02/2024 9:15 AM RESOURCE PARAPROFESSIONAL Office Visit [facility] [id number] [place] [address] Kale Ga MD Consult (Stage 3b chronic kidney disease; 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 ) [...] on file Legal Sex Female 5:26 AM RESOURCE PARAPROFESSIONAL Gender Identity Not on file Sexual Orientation [...] Description 06/28/2025 3:45 PM CDT Orders Only [facility] [address] [place] [address] Lab, [place] 07/02/2025 9:00 AM CDT Office Visit [facility] [address] [place], [place] [phone] Norma Richardson, TRINH [address] [place] [address] Health Maintenance Due Date Last Done Comments [...] AND BLADDER COMPLETE Routine 11/27/2024 9:36 AM RESOURCE PARAPROFESSIONAL Stage 3b chronic kidney disease (HC) URINALYSIS MICROSCOPIC Routine 11/02/2024 2:15 PM RESOURCE PARAPROFESSIONAL Stage 3b chronic kidney disease (HC) URINE CULTURE Routine 11/02/2024 2:15 PM RESOURCE PARAPROFESSIONAL Stage 3b chronic kidney disease (HC) URINALYSIS MACROSCOPIC - [facility] ONLY POC DIP ([facility]) Routine 11/02/2024 2:15 PM RESOURCE PARAPROFESSIONAL Stage 3b chronic kidney disease (HC) PROTEIN/CREAT RATIO,URINE Routine 11/02/2024 2:15 PM RESOURCE PARAPROFESSIONAL Stage 3b chronic kidney disease (HC) URINE ALBUMIN TO CREATININE RATIO, RANDOM Routine 11/02/2024 2:15 PM RESOURCE PARAPROFESSIONAL Stage 3b chronic kidney disease (HC) CBC WITH AUTO DIFFERENTIAL Routine 11/02/2024 10:07 AM RESOURCE PARAPROFESSIONAL Stage 3b chronic kidney disease (HC) HEPATIC FUNCTION PANEL Routine 11/02/2024 10:07 AM RESOURCE PARAPROFESSIONAL Stage 3b chronic kidney disease (HC) VITAMIN D 25 (DEFICIENCY) Routine 11/02/2024 10:07 AM RESOURCE PARAPROFESSIONAL Stage 3b chronic kidney disease (HC) PHOSPHORUS Routine 11/02/2024 10:07 AM RESOURCE PARAPROFESSIONAL Stage 3b chronic kidney disease (HC) PTH,INTACT Routine 11/02/2024 10:07 AM RESOURCE PARAPROFESSIONAL Stage 3b chronic kidney disease (HC) BASIC METABOLIC PANEL Routine 11/02/2024 10:07 AM RESOURCE PARAPROFESSIONAL Stage 3b chronic kidney disease (HC) CBC WITH AUTO DIFFERENTIAL Routine 11/02/2024 10:07 AM RESOURCE PARAPROFESSIONAL Stage 3b chronic kidney disease (HC) XR MAMMO BANDAR BILAT SCREEN Routine 09/28/2024 4:07 PM RESOURCE PARAPROFESSIONAL Visit for screening mammogram ANTI HCV Routine 11/21/2020 3:43 PM RESOURCE PARAPROFESSIONAL Need for hepatitis C screening test WRAPPER SHEETER THIN PREP PAP SCREEN IMAGED Routine 08/08/2020 9:03 AM CDT Screening for malignant neoplasm of cervix COLONOSCOPY 05/28/2019 11:30 AM CDT from Last 3 Months or Most Recently Relevant to Health Maintenance Results * (ABNORMAL) BASIC METABOLIC PANEL (12/22/2024 3:19 PM CDT) Only the most recent of2 resultswithin the time period is included. GLUCOSE 111(H) 65 - 99 mg/dL [facility] Comment: Fasting reference interval For someone without known diabetes, a glucose value between 100 and 125 mg/dL is consistent with prediabetes and should be confirmed with a follow-up test. UREA NITROGEN (BUN) 23 7 - 25 mg/dL [facility] CREATININE 1.19(H) 0.50 - [...] CDT Kale Ga MD CHEMISTRY Final Result [facility] [address] [place] [address], [facility] [address] [place] [address] * (ABNORMAL) LIPID PANEL W REFLEX MEASURED LDL (12/22/2024 3:15 PM CDT) [facility] Signature CHOLESTEROL, TOTAL 183 <200 mg/dL [facility] HDL CHOLESTEROL 47(L) > OR = 50 mg/dL [facility] TRIGLYCERIDES 283(H) <150 mg/dL [facility] [...] LDL-C. Ray BECKHAM et al. GISSELL. 2013;310(19): 4553-2403 (http://education.NextPrinciples/faq/RMG960) CHOL/HDLC RATIO 3.9 <5.0 (calc) [facility] [...] Case Fulton MD CHEMISTRY Final Res ult [facility] [address] [place] [address], [facility] [address] [place] [address] * US RENAL AND BLADDER COMPLETE (11/27/2024 9:36 AM RESOURCE PARAPROFESSIONAL) Anatomical Region Laterality Modality Abdomen, AORTA, KIDNEYS Ultrasou nd 11/28/2024 2:17 AM RESOURCE PARAPROFESSIONAL Impressions 11/28/2024 2:17 AM RESOURCE PARAPROFESSIONAL Atrophic echogenic kidneys consistent with known chronic renal disease. Dictated by Dion Alejandro MD @ 11/28/2024 2:17:54 AM (Electronically Signed) Narrative 11/28/2024 2:17 AM RESOURCE PARAPROFESSIONAL For Patients: As a result of the [...] POCT Urinalysis Dipstick Only (11/02/2024 2:15 PM RESOURCE PARAPROFESSIONAL) COLOR Yellow Yellow Color 11/02/2024 3:37 PM RESOURCE PARAPROFESSIONAL [facility] CLARITY Slightly Cloudy(A) Clear Clarity 11/02/2024 3:37 PM RESOURCE PARAPROFESSIONAL [facility] SPECIFIC GRAVITY,URINE 1.025 1.010, 1.015, 1.020, 1.025 11/02/2024 3:37 PM RESOURCE PARAPROFESSIONAL [facility] PH,URINE 5.5 6.0, 7.0, 8.0, 5.5, 6.5, 7.5, 8.5 11/02/2024 3:37 PM RESOURCE PARAPROFESSIONAL [facility] UROBILINOGEN, QUALITATIVE Normal Normal EU/dl 11/02/2024 3:37 PM RESOURCE PARAPROFESSIONAL [facility] PROTEIN, URINE >=300(A) Negative mg/dL 11/02/2024 3:37 PM RESOURCE PARAPROFESSIONAL [facility] GLUCOSE, URINE Negative Negative mg/dL 11/02/2024 3:37 PM RESOURCE PARAPROFESSIONAL [facility] KETONES,URINE Negative Negative mg/dL 11/02/2024 3:37 PM RESOURCE PARAPROFESSIONAL [facility] BILIRUBIN,URI NE Negative Negative 11/02/2024 3:37 PM RESOURCE PARAPROFESSIONAL [facility] OCCULT BLOOD,URINE Trace(A) Negative 11/02/2024 3:37 PM RESOURCE PARAPROFESSIONAL [facility] NITRITE Negative Negative 11/02/2024 3:37 PM RESOURCE PARAPROFESSIONAL [facility] LEUKOCYTE ESTERASE Negative Negative 11/02/2024 3:37 PM RESOURCE PARAPROFESSIONAL [facility] Urine URINE SPECIMEN / Unknown Non-Blood / Unknown 11/02/2024 2:15 PM RESOURCE PARAPROFESSIONAL 11/02/2024 3:33 PM RESOURCE PARAPROFESSIONAL us Kale Ga MD URINE Final Result [facility] [address] [place] [address], * (ABNORMAL) URINALYSIS MICROSCOPIC (11/02/2024 2:15 PM RESOURCE PARAPROFESSIONAL) RBC 0-2 0-2, None Seen /HPF 11/03/2024 1:03 AM RESOURCE PARAPROFESSIONAL [facility] WBC 6-10(A) 0-2, 3-5, None Seen /HPF 11/03/2024 1:03 AM RESOURCE PARAPROFESSIONAL [facility] BACTERIA Rare None Seen, Rare, Few Bacteria/ HPF 11/03/2024 1:03 AM RESOURCE PARAPROFESSIONAL [facility] EPITHELIAL CELLS Moderate(A ) None Seen, Few Epi/HPF 11/03/2024 1:03 AM RESOURCE PARAPROFESSIONAL [facility] HYALINE CASTS 0-2 0-2, 3-5 /LPF 11/03/2024 1:03 AM RESOURCE PARAPROFESSIONAL [facility] URIC ACID CRYSTALS Present(A) (none) 11/03/2024 1:03 AM RESOURCE PARAPROFESSIONAL [facility] Urine URINE SPECIMEN / Unknown Non-Blood / Unknown 11/02/2024 2:15 PM RESOURCE PARAPROFESSIONAL 11/02/2024 3:37 PM RESOURCE PARAPROFESSIONAL Kale Ga MD URINE Final Result Performing Organization Address [facility]/ZIP Co de Phone Number [facility] [address] [place] [address], [place] * (ABNORMAL) PROTEIN/CREAT RATIO,URINE (11/02/2024 2:15 PM RESOURCE PARAPROFESSIONAL) PROTEIN QUANT,RAND URINE 188(H) 1 - 14 mg/dL 11/02/2024 11:36 PM RESOURCE PARAPROFESSIONAL [facility] CREAT,RANDOM URINE 105.0 28.0 - 217.0 mg/dL 11/02/2024 11:36 PM RESOURCE PARAPROFESSIONAL [facility] PROT/CREAT RATIO,UR 1.8(H) <0.2 11/02/2024 11:36 PM RESOURCE PARAPROFESSIONAL [facility] Urine URINE SPECIMEN / Unknown Non-Blood / Unknown 11/02/2024 2:15 PM RESOURCE PARAPROFESSIONAL 11/02/2024 3:33 PM RESOURCE PARAPROFESSIONAL Kale Ga MD URINE Final Result Performing Organization Address [facility]/ZIP Co de Phone Number [facility] [address] [place] [address], [place] * URINE CULTURE [40776.2] (11/02/2024 2:15 PM RESOURCE PARAPROFESSIONAL) CULTURE 10-50,000 CFU/mL of multiple organisms, probable contaminants 11/04/2024 8:50 AM RESOURCE PARAPROFESSIONAL [facility] Urine URINE SPECIMEN / Unknown Non-Blood / Unknown 11/02/2024 2:15 PM RESOURCE PARAPROFESSIONAL 11/02/2024 3:37 PM RESOURCE PARAPROFESSIONAL us Kale Ga MD MICROBIOLOGY Final Result Performing Organization Address [facility]/ZIP Co de Phone Number [facility] [address] [place] [address], [place] * (ABNORMAL) URINE ALBUMIN TO CREATININE RATIO, RANDOM (11/02/2024 2:15 PM RESOURCE PARAPROFESSIONAL) ALB RAND URINE 1,161.0 mg/L 11/02/2024 11:59 PM RESOURCE PARAPROFESSIONAL [facility] CREATININE,URIN E 1.05 g/L 11/02/2024 11:59 PM RESOURCE PARAPROFESSIONAL [facility] TRA LABORATORY ALBUMIN TO CREATININE RATIO,RAND UR 1,105.7(H) <30.0 mg/g creat 11/02/2024 11:59 PM RESOURCE PARAPROFESSIONAL [facility] Urine URINE SPECIMEN / Unknown Non-Blood / Unknown 11/02/2024 2:15 PM RESOURCE PARAPROFESSIONAL 11/02/2024 3:33 PM RESOURCE PARAPROFESSIONAL Narrative [facility] - 11/02/2024 11:59 PM RESOURCE PARAPROFESSIONAL If Albumin to Creatinine Ratio is elevated, consider the following: Elevations seen with incipient nephropathy associated with diabetes mellitus or hypertension. Stress, exercise,hematuria, and urinary tract infection may also produce elevated results. If clinically indicated, confirm with 24 Hour Albumin to Creatinine Ratio. us Kale Ga MD URINE Final Result Performing Organization Address [facility] Co de Phone Number [facility] [address] [place] [address], [place] * (ABNORMAL) CBC WITH AUTO DIFFERENTIAL (11/02/2024 10:07 AM RESOURCE PARAPROFESSIONAL) WHITE BLOOD CELL COUNT 11.6(H) 3.8 - 10.8 Thousand/ uL 11/03/2024 5:36 AM RESOURCE PARAPROFESSIONAL [facility] RED BLOOD CELL COUNT 4.73 3.80 - 5.10 Million/u L 11/03/2024 5:36 AM RESOURCE PARAPROFESSIONAL [facility] HEMOGLOBIN 12.5 11.7 - 15.5 g/dL 11/03/2024 5:36 AM RESOURCE PARAPROFESSIONAL [facility] HEMATOCRIT 39.7 35.0 - 45.0 % 11/03/2024 5:36 AM RESOURCE PARAPROFESSIONAL [facility] MCV 83.9 80.0 - 100.0 fL 11/03/2024 5:36 AM RESOURCE PARAPROFESSIONAL [facility] MCH 26.4(L) 27.0 - 33.0 pg 11/03/2024 5:36 AM RESOURCE PARAPROFESSIONAL [facility] MCHC 31.5(L) 32.0 - 36.0 g/dL 11/03/2024 5:36 AM RESOURCE PARAPROFESSIONAL [facility] Comment: For adults, a slight decrease in the calculated MCHC value (in the range of 30 to 32 g/dL) is most likely not clinically significant; however, it should be interpreted with caution in correlation with other red cell parameters and the patient's clinical condition. RDW 14.6 11.0 - 15.0 % 11/03/2024 5:36 AM RESOURCE PARAPROFESSIONAL [facility] PLATELET COUNT 170 140 - 400 Thousand/ uL 11/03/2024 5:36 AM RESOURCE PARAPROFESSIONAL [facility] MPV 11.7 7.5 - 12.5 fL 11/03/2024 5:36 AM RESOURCE PARAPROFESSIONAL [facility] NEUTROPHILS 71.8 % 11/03/2024 5:36 AM RESOURCE PARAPROFESSIONAL [facility] LYMPHOCYTES 19.1 % 11/03/2024 5:36 AM RESOURCE PARAPROFESSIONAL [facility] MONOCYTES 5.8 % 11/03/2024 5:36 AM RESOURCE PARAPROFESSIONAL [facility] EOSINOPHILS 2.9 % 11/03/2024 5:36 AM RESOURCE PARAPROFESSIONAL [facility] BASOPHILS 0.4 % 11/03/2024 5:36 AM RESOURCE PARAPROFESSIONAL [facility] ABSOLUTE NEUTROPHILS 8329(H) 1500 - 7800 cells/uL 11/03/2024 5:36 AM RESOURCE PARAPROFESSIONAL [facility] ABSOLUTE LYMPHOCYTES 2216 850 - 3900 cells/uL 11/03/2024 5:36 AM RESOURCE PARAPROFESSIONAL [facility] ABSOLUTE MONOCYTES 673 200 - 950 cells/uL 11/03/2024 5:36 AM RESOURCE PARAPROFESSIONAL [facility] ABSOLUTE EOSINOPHILS 336 15 - 500 cells/uL 11/03/2024 5:36 AM RESOURCE PARAPROFESSIONAL [facility] ABSOLUTE BASOPHILS 46 0 - 200 cells/uL 11/03/2024 5:36 AM RESOURCE PARAPROFESSIONAL [facility] Blood BLOOD SPECIMEN / Unknown Non-Lab Venipuncture / Unknown 11/02/2024 10:07 AM RESOURCE PARAPROFESSIONAL 11/02/2024 10:07 AM RESOURCE PARAPROFESSIONAL us Kale Ga MD HEMATOLOGY Final Result Performing Organization Address [facility]/ZIP Co de Phone Number [facility] [address] [address], * VITAMIN D 25 (DEFICIENCY) (11/02/2024 10:07 AM RESOURCE PARAPROFESSIONAL) VITAMIN D,25-OH,TOTAL,IA 61 30 - 100 ng/mL 11/03/2024 6:20 AM RESOURCE PARAPROFESSIONAL [facility] Comment: Vitamin D Status 25-OH Vitamin D: Deficiency: <20 ng/mL Insufficiency: 20 - 29 ng/mL Optimal: > or = 30 ng/mL For 25-OH Vitamin D testing on patients on D2-supplementation and patients for whom quantitation of D2 and D3 fractions is required, the QuestAssureD(TM) 25-OH VIT D, (D2,D3), LC/MS/MS is recommended: order code 78778 (patients >2yrs). See Note 1 Note 1 For additional information, please refer to http://education.NextPrinciples/faq/OLT721 (This link is being provided for informational/ educational purposes only.) Blood BLOOD SPECIMEN / Unknown Non-Lab Venipuncture / Unknown 11/02/2024 10:07 AM RESOURCE PARAPROFESSIONAL 11/02/2024 10:07 AM RESOURCE PARAPROFESSIONAL us Kale Ga MD SEND OUTS Final Result Performing Organization Address [facility]/ZIP Co de Phone Number [facility] [address] [place] [phone], [place] [phone] * PHOSPHORUS (11/02/2024 10:07 AM RESOURCE PARAPROFESSIONAL) PHOSPHATE ( PHOSPHORUS) 3.3 2.5 - 4.5 mg/dL 11/03/2024 5:59 AM RESOURCE PARAPROFESSIONAL [facility] Blood BLOOD SPECIMEN / Unknown Non-Lab Venipuncture / Unknown 11/02/2024 10:07 AM RESOURCE PARAPROFESSIONAL 11/02/2024 10:07 AM RESOURCE PARAPROFESSIONAL us Kale Ga MD CHEMISTRY Final Result [facility] [address] [address], * PTH,INTACT (11/02/2024 10:07 AM RESOURCE PARAPROFESSIONAL) PARATHYROID HORMONE, INTACT 23 16 - 77 pg/mL 11/03/2024 11:38 AM RESOURCE PARAPROFESSIONAL [facility] Comment: Interpretive Guide Intact PTH Calcium ------- Normal Parathyroid Normal Normal Hypoparathyroidism Low or Low Normal Low Hyperparathyroidism Primary Normal or High High Secondary High Normal or Low Tertiary High High Non-Parathyroid Hypercalcemia Low or Low Normal High CALCIUM 9.6 8.6 - 10.4 mg/dL 11/03/2024 11:38 AM RESOURCE PARAPROFESSIONAL [facility] Blood BLOOD SPECIMEN / Unknown Non-Lab Venipuncture / Unknown 11/02/2024 10:07 AM RESOURCE PARAPROFESSIONAL 11/02/2024 10:07 AM RESOURCE PARAPROFESSIONAL us Kale Ga MD SEND OUTS Final Result Performing Organization Address [facility]/ZIP Co de Phone Number [facility] [address] [address], * (ABNORMAL) HEPATIC FUNCTION PANEL (11/02/2024 10:07 AM RESOURCE PARAPROFESSIONAL) ALBUMIN 4.0 3.6 - 5.1 g/dL 11/03/2024 5:59 AM RESOURCE PARAPROFESSIONAL [facility] PROTEIN, TOTAL 6.9 6.1 - 8.1 g/dL 11/03/2024 5:59 AM RESOURCE PARAPROFESSIONAL [facility] BILIRUBIN, TOTAL 0.2 0.2 - 1.2 mg/dL 11/03/2024 5:59 AM RESOURCE PARAPROFESSIONAL [facility] BILIRUBIN, DIRECT 0.1 < OR = 0.2 mg/dL 11/03/2024 5:59 AM RESOURCE PARAPROFESSIONAL [facility] BILIRUBIN, INDIRECT 0.1(L) 0.2 - 1.2 mg/dL (calc) 11/03/2024 5:59 AM RESOURCE PARAPROFESSIONAL [facility] ALKALINE PHOSPHATASE 138 37 - 153 U/L 11/03/2024 5:59 AM RESOURCE PARAPROFESSIONAL [facility] ALT 23 6 - 29 U/L 11/03/2024 5:59 AM RESOURCE PARAPROFESSIONAL [facility] AST 19 10 - 35 U/L 11/03/2024 5:59 AM RESOURCE PARAPROFESSIONAL [facility] GLOBULIN 2.9 1.9 - 3.7 g/dL (calc) 11/03/2024 5:59 AM RESOURCE PARAPROFESSIONAL [facility] ALBUMIN/GLOBULIN RATIO 1.4 1.0 - 2.5 (calc) 11/03/2024 5:59 AM RESOURCE PARAPROFESSIONAL [facility] Blood BLOOD SPECIMEN / Unknown Non-Lab Venipuncture / Unknown 11/02/2024 10:07 AM RESOURCE PARAPROFESSIONAL 11/02/2024 10:07 AM RESOURCE PARAPROFESSIONAL Kale Ga MD CHEMISTRY Final Result [facility] [address] [place] [address], * XR MAMMO BANDAR BILAT SCREEN (09/28/2024 4:07 PM RESOURCE PARAPROFESSIONAL) Anatomical Region Laterality Modality BREASTS, Breast Left, Breast Right Bilateral Mammography Impressions 09/29/2024 1:18 PM RESOURCE PARAPROFESSIONAL There is no radiographic evidence for malignancy. Recommend annual mammograms. MAMMOGRAM ASSESSMENT: ACR 1 Negative PATIENTS: You will also receive a letter with your examination results in an easy to read format. If you have questions about your results, please contact your referring provider. Narrative 09/29/2024 1:18 PM RESOURCE PARAPROFESSIONAL For Patients: As a result of the 21st Century Cures Act, medical imaging exams and procedure reports are released immediately into your electronic medical record. You may view this report before your referring provider. If you have questions, please contact your health care provider. XR MAMMO BANDAR BILAT SCREEN [[id number]] CLINICAL HISTORY: This is an asymptomatic 64 y.o. patient. INDICATION FOR EXAM: Mammogram Screening. TECHNIQUE: CC & MLO views were obtained. This study was evaluated with the assistance of Computer-Aided Detection. Breast Tomosynthesis was used in interpretation. COMPARISON FILM: Yes 02/19/23 [facility] 07/13/20 [facility] FINDINGS: There are scattered areas of fibroglandular density. There are no dominant masses, suspicious micro calcifications or areas of architectural distortion. Nicki Vela DO MAMMO Final Resu lt * ANTI HCV (11/21/2020 3:43 PM RESOURCE PARAPROFESSIONAL) HEPATITIS C ANTIBODY Non-React marii Non-React marii 11/21/2020 8:46 PM RESOURCE PARAPROFESSIONAL [facility] Comment:Antibodies to HCV no t detected; does not exclude the possibility of exposure to HCV. Blood BLOOD SPECIMEN / Unknown Butterfly / Unknown 11/21/2020 3:43 PM RESOURCE PARAPROFESSIONAL 11/21/2020 3:44 PM RESOURCE PARAPROFESSIONAL Nicki Vela DO SEND OUTS Final Resu lt [facility] [address] [place] [address], [place] * (ABNORMAL) WRAPPER SHEETER THIN PREP PAP SCREEN IMAGED [[id number]] (08/08/2020 9:03 AM CDT) Case Report Gynecologic Cytology Report Case: [id number] Authorizing Provider: Nicki Vela DO Collected: 08/08/2020 0903 Ordering Location: [facility] Received: 08/08/2020 0933 Clinic First Screen: Shahida Pires Pathologist: Jimbo Bautista Jr., MD Specimen: WRAPPER SHEETER ThinPrep Vial Screening, Cervical 08/15/2020 3:57 PM RESOURCE PARAPROFESSIONAL [facility] INTERPRETATION/ RESULT ATYPICAL SQUAMOUS CELLS OF UNDETERMINED SIGNIFICANCE (ASCUS)(A) (none) 08/15/2020 3:57 PM RESOURCE PARAPROFESSIONAL [facility] IMEN ADEQUACY Satisfactory for evaluation Endocervical component present 08/15/2020 3:57 PM RESOURCE PARAPROFESSIONAL [facility] HPV REQUEST HPV and PAP 08/15/2020 3:57 PM RESOURCE PARAPROFESSIONAL [facility] Date of LMP 08/14/2013 08/15/2020 3:57 PM RESOURCE PARAPROFESSIONAL [facility] Last Pap Date 04/28/15 08/15/2020 3:57 PM RESOURCE PARAPROFESSIONAL [facility] Last Pap Result NIL 0 3:57 PM RESOURCE PARAPROFESSIONAL [facility] Abnormal Pap or [place] Bx in last 5 years No 08/15/2020 3:57 PM RESOURCE PARAPROFESSIONAL [facility] Menstrual Status Postmenopausal 08/15/2020 3:57 PM RESOURCE PARAPROFESSIONAL [facility] [place] Bx Done Today No 08/15/2020 3:57 PM RESOURCE PARAPROFESSIONAL [facility] Additional Information None given 08/15/2020 3:57 PM RESOURCE PARAPROFESSIONAL [facility] Comment: Cytology is screened at [facility] - [address], [place] [address] and [facility] - [address], [place] [address] [address] [facility] - [address] [place] [address] Interpreted at [facility] - [address], [place] [address] Automated Review Successful 08/15/2020 3:57 PM RESOURCE PARAPROFESSIONAL [facility] Comment:Specimen processed s uccessfully by automated hearing aid consultant device, ThinPrep Imaging System, [employer] ANCILLARY TESTING WRAPPER SHEETER HPV Ordered, Please see separate report 08/15/2020 3:57 PM RESOURCE PARAPROFESSIONAL [facility] Note The pap test is a screening technique, not a diagnostic procedure. It is used primarily to screen for squamous cancers and precursor lesions. Published studies have shown that it is subject to both false negative and false positive results. The pap test should not be used as the sole means to diagnose or exclude pre-malignant and malignant lesions. 08/15/2020 3:57 PM RESOURCE PARAPROFESSIONAL [facility] ENTRAL LABORATORY Other (Cervical) Non-Blood / Unknown 08/08/2020 9:03 AM CDT 08/08/2020 9:33 AM CDT us Nicki Ann Dane DO PATHOLOGY/CYTOLOGY Final R esult [facility] [address] [place] [address], [place] * COLONOSCOPY (05/28/2019 11:30 AM CDT) [...] adequate candidate for conscious sedation. The [id number] was passed through the anus and advanced [...] reponse to care. [facility] and nursing notes for moderate sedation details. Total physician intraservice time was 18 minutes. Ray Dixon MD 05/28/2019 12:24:57 PM This report has been signed electronically. Note Initiated On: 05/28/2019 11:30 AM Procedure Code(s): --- Professional --- 01468, Colonoscopy, flexible; with removalof tumor(s), polyp(s), or other lesion(s) bysnare technique Diagnosis Code(s): --- Professional --- Z86.010, Personal history of colonicpolyps D12.3, Benign neoplasm of transverse colon (hepatic flexure or splenic flexure) CPT copyright 2018 [employer]. All rights reserved. The codes documented in this report are preliminary and upon railroad brakeman reviewmay be revised to meet current compliance requirements. Scope In: 12:05:01 PM Scope Withdrawal Time 0 hours 8 minutes 57 seconds Scope Out: 12:21:40 PM Ray Dixon MD PROCEDURE ORD Final Res ult from Last 3 Months or Most Recently Relevant to Health Maintenance Insurance [facility] Advance Directives * Full Code (Latest Code [...] 12:10 AM 10/12/2014 1:46 PM Care Teams Right Of Way Supervisor Relationship Specialty Start Date End Date Nicki Vela DO [address] [place] [address] PCP - General Family Practice 10/16/13 [place] [address] [place] [address] Nephrology 11/02/24
--- NOTE | 2025-01-08 11:33 | ED.GENADULT ---
HPI - General Adult General Chief complaint: Flank Pain Stated complaint: R flank pain, nausea Time Seen by Provider: 01/08/25 10:27 Source: patient Mode of arrival: ambulatory Limitations: no limitations History of Present Illness HPI narrative: 64-year-old female presenting today with right flank pain radiating into the right lower abdomen that started this morning. She feels very nauseated and then did begin vomiting earlier today. She denies fevers or chills. Does have a history of stage 3 kidney disease. Nothing seems to make the pain better or worse. She denies recent illness or trauma to the area. Had no appetite today. Related Data Home Medications ?Medication ?Instructions ?Recorded ?Confirmed atorvastatin 80 mg tablet 80 mg PO DAILY 05/23/22 01/08/25 ezetimibe 10 mg tablet 10 mg PO DAILY 05/23/22 01/08/25 insulin glargine-yfgn 100 unit/mL 90 unit subcut BID 05/23/22 01/08/25 (3 mL) subcutaneous pen (Semglee (insulin glargine-yfgn) Pen) metformin 500 mg tablet 500 mg PO BID 05/23/22 01/08/25 metoprolol tartrate 100 mg tablet 200 mg PO BID 05/23/22 01/08/25 nitroglycerin 0.4 mg sublingual 0.4 mg sublingual PRN 05/23/22 tablet omeprazole 20 mg capsule,delayed 20 mg PO .every other day 05/23/22 01/08/25 release semaglutide 1 mg/dose (4 mg/3 mL) 2 mg subcut .weekly 05/23/22 01/08/25 subcutaneous pen injector (Ozempic) tramadol 50 mg tablet 50 mg PO Q8H PRN 05/23/22 01/08/25 aspirin 81 mg tablet,delayed 81 mg PO DAILY 12/18/22 01/08/25 release (Adult Low Dose Aspirin) losartan 100 mg tablet 100 mg PO DAILY 01/08/25 01/08/25 nifedipine 30 mg tablet,extended 30 mg PO DAILY 01/08/25 01/08/25 release 24 hr Previous Rx's ?Medication ?Instructions ?Recorded tramadol 50 mg tablet 50 mg PO TID PRN pain #14 tabs 01/08/25 Allergies Allergy/AdvReac Type Severity Reaction Status Date / Time ticagrelor Allergy Unknown Verified 01/08/25 10:13 morphine AdvReac increased Verified 01/08/25 10:13 BP Review of Systems Status of ROS: Reports: 10 or more systems reviewed and unremarkable except as noted in History and below [facility] Medical History Morbid obesity ?E66.01 - Morbid (severe) obesity due to excess calories (ICD-10) GERD (gastroesophageal reflux disease) ?K21.9 - Gastro-esophageal reflux disease without esophagitis (ICD-10) Chronic kidney disease (CKD) stage G3a/A3, moderately decreased glomerular filtration rate (GFR) between 45-59 mL/min/1.73 square meter and albuminuria creatinine ratio greater than 300 mg/g ?N18.31 - Chronic kidney disease, stage 3a (ICD-10) Iron deficiency anemia ?D50.9 - Iron deficiency anemia, unspecified (ICD-10) Hyperlipidemia ?E78.5 - Hyperlipidemia, unspecified (ICD-10) NSTEMI (non-ST elevated myocardial infarction) ?I21.4 - Non-ST elevation (NSTEMI) myocardial infarction (ICD-10) Broncholithiasis ?J98.09 - Other diseases of bronchus, not elsewhere classified (ICD-10) HTN (hypertension) ?I10 - Essential (primary) hypertension (ICD-10) Type 2 diabetes mellitus ?E11.9 - Type 2 diabetes mellitus without complications (ICD-10) Ulnar fracture ?S52.209A - Unspecified fracture of shaft of unspecified ulna, initial encounter for closed fracture (ICD-10) Pneumonia ?J18.9 - Pneumonia, unspecified organism (ICD-10) CHF (congestive heart failure) ?I50.9 - Heart failure, unspecified (ICD-10) Surgical History History of carpal tunnel release ?Z98.890 - Other specified postprocedural states (ICD-10) History of coronary artery stent placement ?Z95.5 - Presence of coronary angioplasty implant and graft (ICD-10) H/O wrist surgery ?Z98.890 - Other specified postprocedural states (ICD-10) S/P lobectomy of lung ?Z90.2 - Acquired absence of lung [part of] (ICD-10) Social History Smoking Status: Former smoker Second hand tobacco smoke exposure: No How often do you have a drink containing alcohol: never AUDIT-C Alcohol total score: 0 Non-prescribed substance use: denies use service: No Exam Narrative: Exam Narrative: Overweight, well-developed patient, uncomfortable. Alert and oriented. Answers questions appropriately. Mood and affect are appropriate. Thoughts are goal oriented and rational. No tangential or magical thinking noted. Patient speaks in full sentences without needing to catch her breath. HEENT: Normocephalic atraumatic. Pupils are equally round reactive to light. Extraocular muscles are intact. Conjunctivae are moist without any icterus noted. Moist mucous membranes. Posterior pharynx is normal. Neck is supple. Cardiovascular: Heart is regular rate and rhythm S1 and S2 are present without any murmurs. Lungs: Clear to auscultation bilaterally no wheezes rhonchi or rales are appreciated. Patient takes deep breaths without any discomfort. Abdomen: Soft and nontender nondistended with normal bowel sounds. No guarding or rebound. No masses or organomegaly appreciated. Patient does have right-sided CVA tenderness. Extremities: Bilateral lower extremities are without edema. Skin: Well perfused without any obvious rashes. Const: Vital Signs, click to edit/add: Vital Signs - 24 hr 01/08/25 10:04 Temperature 96.2 F L Pulse Rate [Pulse Oximeter] 80 Respiratory Rate 18 Blood Pressure [Ri ght Upper Arm] 168/80 H Pulse Oximetry 97 Oxygen Delivery Me thod Room Air Course Course ED Course: CBC shows a white cell count slightly elevated at 13.46. 81.4% neutrophils. Chemistries are unremarkable. Glucose 140. LFTs are unremarkable. Normal CRP. Normal lipase. UA shows 2+ blood, 3+ protein, 25-[address] scan was done-patient has a 3 mm obstructing stone in the distal right ureter, with mild right-sided hydroureteronephrosis. Vital Signs Vital signs: Initial Vital Signs Temperature 96.2 F L 01/08/25 10:04 Temperature Source Temporal Artery Scan 01/08/25 10:04 Pulse Rate 80 01/08/25 10:04 Respiratory Rate 18 01/08/25 10:04 Blood Pressure 168/80 H 01/08/25 10:04 Blood Pressure Mean 109 H 01/08/25 10:04 Blood Pressure Position Sitting 01/08/25 10:04 Pulse Oximetry 97 01/08/25 10:04 Oxygen Delivery Method Room Air 01/08/25 10:04 Vital Signs Temperature 96.2 F L 01/08/25 10:04 Pulse Rate 80 01/08/25 10:04 Respiratory Rate 18 01/08/25 10:04 Blood Pressure 168/80 H 01/08/25 10:04 Pulse Oximetry 97 01/08/25 10:04 Oxygen Delivery Method Room Air 01/08/25 10:04 Temperature 96.2 F L 01/08/25 10:04 Pulse Rate 80 01/08/25 10:04 Respiratory Rate 18 01/08/25 10:04 Blood Pressure 168/80 H 01/08/25 10:04 Pulse Oximetry 97 01/08/25 10:04 Oxygen Delivery Method Room Air 01/08/25 10:04 Medications Administered Medications: Discontinued Medications Generic Name Dose Route Start Last Admin Trade Name Freq PRN Reason Stop Dose Admin Sodium Chloride 1,000 mls @ 1,000 mls/hr 01/08/25 10:30 01/08/25 10:38 0.9 % Sodium Chloride 1000 Ml IV 01/08/25 11:29 1,000 mls/hr .Q1H CATIA Administration Ondansetron HCl 4 mg 01/08/25 10:27 01/08/25 10:38 Ondansetron 2 Mg/Ml Inj IVP 01/08/25 10:28 4 mg ONCE ONE Administration Ondansetron HCl 4 mg 01/08/25 11:46 01/08/25 11:52 Ondansetron 2 Mg/Ml Inj IVP 01/08/25 11:47 4 mg ONCE ONE Administration Medical Decision Making MDM Narrative Medical decision making narrative: 64-year-old female with a right-sided renal stone. Patient will be discharged home Lab Data Lab results reviewed: Yes I reviewed the patient's lab results Labs: Lab Results 01/08/25 01/08/25 Range/Units 10:43 11:00 WBC 13.46 H (4.50-11.00) K/uL RBC 5.23 H (4.00-5.20) m/uL Hgb 13.8 (12.0-16.0) gm/dL Hct 42.9 (33.0-51.0) % MCV 82 (80-100) fL MCH 26 (26-34) pg MCHC 32 (32-36) gm/dL RDW Coeff of Comfort 14.6 (11.5-15.5) % Plt Count 188 (140-440) K/uL Neut % (Auto) 81.4 H (42.0-72.0) % Lymph % (Auto) 12.2 L (20-44) % [place] % (Auto) 4.2 (0.0-11.0) % Eos % (Auto) 1.9 (0.0-7.0) % Baso % (Auto) 0.1 (0.0-3.0) % Neut # (Auto) 11.00 H (1.7-7.0) K/uL Lymph # (Auto) 1.60 (0.90-2.90) K/uL [place] # (Auto) 0.60 (0.00-0.90) K/UL Eos # (Auto) 0.30 (0.00-0.50) K/uL Baso # (Auto) 0.00 (0.00-0.30) K/uL Abs Immat Gran (auto) 0.00 (0.00-0.30) K/uL Imm/Tot Granulo (auto) 0.2 % Sodium 141 (135-149) mmol/L Potassium 4.1 (3.6-5.1) mmol/L Chloride 106 (96-114) mmol/L Carbon Dioxide 24 (20-32) mmol/L Anion Gap 11 (7-15) mEq/L BUN 27 (7-30) mg/dL Creatinine 1.2 (0.5-1.5) mg/dL Estimated Creat Clear 41.97 Estimated GFR 51 ml/min Glucose 140 H (60-115) mg/dL Lactate 1.6 (0.5-1.9) mmol/L Calcium 9.6 (8.4-10.6) mg/dL Total Bilirubin 0.5 (0.1-1.5) mg/dL Direct Bilirubin 0.3 (0.0-0.5) mg/dL AST 36 H (12-35) U/L ALT 34 (4-35) U/L Alkaline Phosphatase 147 (40-150) U/L C-Reactive Protein 0.5 (0.5-1.0) mg/dL Total Protein 8.0 (6.0-8.3) g/dL Albumin 4.7 (3.3-5.0) g/dL Lipase 154 (23-300) U/L Urine Color Light yellow (Yellow) Urine Appearance Slightly Cloudy A (Clear) Urine pH 5.5 (5.0-8.5) Ur Specific [place] 1.020 (1.000-1.030) Urine Protein 3+ A (Negative) Urine Glucose (UA) Negative (Negative) Urine Ketones Negative (Negative) Urine Blood 2+ A (Negative) Urine Nitrite Negative (Negative) Urine Bilirubin Negative (Negative) Urine Urobilinogen 0.2 (0.2-1.0) Ur Leukocyte Esterase Negative (Negative) Urine RBC 25-50 A (0-2) Urine WBC 2-5 (0-5) Ur Squamous Epith Cells Moderate A (None-Few) Urine Bacteria Moderate A (None) Imaging Data CT scan - abdomen: Attestation: I have reviewed the pertinent imaging results. Radiologist's impression: CT abdomen/pelvis without IV contrast Comparison: None Findings: Lower thorax: Cardiomegaly. Coronary artery calcifications. No focal airspace consolidation, pleural effusion, or pneumothorax. Minimal bibasilar atelectasis. No suspicious pulmonary nodules or masses. Abdomen/pelvis: The liver, gallbladder and biliary system, spleen, pancreas, and adrenal glands are unremarkable in appearance. Slightly atrophic kidneys bilaterally. Likely simple appearing exophytic cyst at the interpolar region of the right kidney measuring 3.2 centimeters in greatest dimension, incompletely characterized on this exam. There is an obstructing 3 millimeter stone in the distal right ureter (series number 2, image 127) causing mild right-sided hydroureteronephrosis. Nonobstructing stones in the left kidney with no left-sided hydroureteronephrosis. The bladder is unremarkable in appearance. The uterus and bilateral adnexa are unremarkable. No evidence of bowel obstruction or inflammation. The appendix is normal. No free air, free fluid, or fluid collections. No abdominopelvic lymphadenopathy. No abdominal aortic aneurysm. Mild calcific atherosclerosis of the aortoiliac system. Soft tissue/musculoskeletal: Diastasis recti with small fat containing umbilical hernia. No acute fracture or malalignment. Degenerative changes of the spine. No suspicious osseous lesions. Impression: Mild right-sided hydroureteronephrosis secondary to an obstructing 3 millimeter stone in the distal right ureter. Discharge Plan Discharge Clinical Impression: Calculus, renal Patient Disposition: Home, Self-Care Condition: Stable Instructions: Kidney Stones (ED) Additional Instructions: Take pain medications as needed. Increase water intake throughout the day. Return to the ER if you develop uncontrollable vomiting and cannot keep down medications or fluids, or if you develop a fever. Tramadol 50 mg tablets, 15 sent to [facility]. Prescriptions: New tramadol 50 mg tablet 50 mg PO TID PRN (Reason: pain) Qty: 14 0RF No Action atorvastatin 80 mg tablet 80 mg PO DAILY metoprolol tartrate 100 mg tablet 200 mg PO BID omeprazole 20 mg capsule,delayed release(DR/EC) 20 mg PO .every other day tramadol 50 mg tablet 50 mg PO Q8H PRN metformin 500 mg tablet 500 mg PO BID ezetimibe 10 mg tablet 10 mg PO DAILY Ozempic 1 mg/dose (4 mg/3 mL) pen injector 2 mg SUBCUT .weekly insulin glargine-yfgn [Semglee(insulin glarg-yfgn)Pen] 100 unit/mL (3 mL) insulin pen 90 unit SUBCUT BID nitroglycerin 0.4 mg tablet, sublingual 0.4 mg sublingual PRN aspirin [Adult Low Dose Aspirin] 81 mg tablet,delayed release (DR/EC) 81 mg PO DAILY nifedipine 30 mg tablet extended release 24hr 30 mg PO DAILY losartan 100 mg tablet 100 mg PO DAILY Follow Up/Referrals: Nicki Vela DO [Primary Care Provider] - Stand Alone Forms: [facility] Inst[facility]
[2025-01-08] MEDS: TRAMADOL HCL 50 MG TABLET PO (12:23)
== END 2025-01-08 12:29 | disposition home or self-care (01) ==
PROVIDERS: Emergency Provider Family Medicine; PCP Family Medicine
DX: N20.0 Calculus of kidney (principal)
CPT/HCPCS: 36415; 74176; 80048; 80076; 81001; 83605; 83690; 85025; 86140; 87086; 96374; 96375; 99284; A9270; J2405; J7030